=== PATIENT | female | born 1940 | race Caucasian/White ===

== ENCOUNTER 2024-02-15 02:21 | Inpatient (IN) | payer OTHER, SELFPAY ==
[2024-02-14 21:20] VITALS: BP 115/42
[2024-02-14 21:52] LABS: % Basophils 0.5 % (0-2); % Immature Granulocytes 0.7 % (0-0.5); % Lymphocytes 7.2 % (20.5-51.1); % Monocytes 6.8 % (1.7-9.3); % Neutrophils 84.8 % (42.2-75.2); Absolute Immature Granulocytes 0.1 10^3/uL (0-0.05); Absolute Lymphocytes 0.6 10^3/uL (1.2-3.4); Absolute Monocytes 0.6 10^3/uL (0.1-0.6); Absolute Neutrophils 7.5 10^3/uL (1.4-6.5); Hematocrit 39.9 % (37.0-47.0); Hemoglobin 13.4 g/dL (12.0-16.0); Mean Corp Hgb Conc. 33.6 g/dL (33.0-37.0); Mean Corpuscular Hgb 27.7 pg (27.0-31.0); Mean Corpuscular Volume 82.4 fL (81.0-99.0); Mean Platelet Volume 9.9 fL (7.4-10.4); Nucleated Red Blood Cells % 0 %; Platelet Count 247 10^3/uL (130-400); Red Blood Cell Count 4.84 10^6/uL (4.20-5.40); White Blood Cell Count 8.8 10^3/uL (4.8-10.8)
--- NOTE | 2024-02-14 21:57 | ED.GENMED ---
History of Present Illness
General
Chief Complaint: Change in Mental Status
Source: patient and family
Time Seen by Provider: 02/14/24 21:40
History of Present Illness
History of Present Illness:
84yoF with a history of aphasia presenting with her daughter and son-in-law for evaluation of altered mental status. History is provided by daughter at bedside. Daughter last spoke with patient 2 days ago on the phone. Daughter called her several
times yesterday but she did not answer. Patient still did not answer the phone today so daughter went to check on her. Patient was found on the ground in her underwear. Unclear how long patient was on the floor. Patient also seemed confused today.
Patient is not currently on any medications. She had a recent biopsy of a scalp lesion. Pathology results showed T cell lymphoma. She has not seen oncology yet. She has baseline aphasia secondary to a fall about a year ago. PCP reportedly told
family that her speech is going to continue to gradually decline.
Phy Exam
Physical Exam
Physical Exam:
Patient fatigued but alert
General Physical Exam
General Presentation: no apparent distress
General Skin: warm and dry
General Habitus: elderly
General Mental: alert
Cardiovascular Exam
Cardiovascular Exam: tachycardia
Pulmonary Exam
Pulmonary Exam: lungs clear, no respiratory distress, no crackles and no wheezing
Gastrointestinal Exam
Gastrointestinal Exam: soft, non distended and tender (+Tenderness throughout lower abdomen)
Neurological Exam
Neurological Exam: alert and other (Baseline aphasia)
Skin Exam
Skin Exam: other (Ecchymosis noted to L posterior thigh. Blanchable erythema noted in sacral region and back.)
Psychiatric Exam
Psychiatric Exam: other (Unable to assess 2/2 aphasia)
Course
Orders/Labs/Results
Orders:
Orders
02/14/24 21:31
Electrocardiogram (*1) Urgent
Reason for Study: Tachycardia
EKG- Treatment ONCE
02/14/24 21:45
Complete Blood Count/With Diff Urgent
Comprehensive Metabolic Panel Urgent
Creatine Phosphokinase Urgent
Comment: ADDON
Lipase Urgent
Comment: ADDON
Magnesium Urgent
Comment: ADDON
02/14/24 21:52
Add On- LAB Urgent
Tests Added?: magnesium, lipase
CT Cervical Spine W/o Iv Contr Urgent
Comment:
Reason For Exam: AMS, found down
CT Head W/o Iv Contrast Urgent
Comment:
Reason For Exam: AMS
CR Chest Portable - 1 View Urgent
Comment:
Reason For Exam: AMS, found down
Reason Study Needs to be Portable: Unable to Transport
02/14/24 21:53
CT Abd/pelvis W Iv Cont Urgent
Comment:
Reason For Exam: Abd pain, distention
Straight cath- Treatment ONCE
0.9% Sodium Chloride 500 ml [Nss] 500 ml IV BOLUS
02/14/24 22:12
0.9% Sodium Chloride 500 ml [Nss] 500 ml IV BOLUS
02/14/24 22:13
Lactate Level [Lactic Acid] Urgent
02/14/24 22:48
Sodium Zirconium Cyclosilicate [Lokelma] 10 gram PO NOW STA
02/14/24 22:50
COVID-19 Antigen Routine
Source: Nasal Swab
Influenza A+B Rapid Molecular Routine
[facility] Source: [facility]
Specimen Description:
Date Specimen was Collected: 02/14/24
Time Specimen was Collected: 22:50
02/14/24 22:59
Urinalysis Reflex To Culture Urgent
02/14/24 23:08
Troponin I Urgent
02/14/24 23:50
Albuterol Sulfate [Ventolin Nebules] 10 mg INH R NOW STA
02/15/24 00:05
Urine Microscopic Reflex Cult Urgent
02/15/24 00:34
0.9% Sodium Chloride 1000 ml [Nss] 1,000 ml IV BOLUS
Abnormal Lab Results
02/14/24 02/14/24 02/15/24
21:45 22:13 00:05
RDW 16.0 H %
(11.5-14.5)
Abs Immat Gran (auto) 0.1 H 10^3/uL
(0-0.05)
Absolute Neuts (auto) 7.5 H 10^3/uL
(1.4-6.5)
Absolute Lymphs (auto) 0.6 L 10^3/uL
(1.2-3.4)
Immature Gran % 0.7 H %
(0-0.5)
Neutrophils % 84.8 H %
(42.2-75.2)
Lymphocytes % 7.2 L %
(20.5-51.1)
Potassium 5.7 H mmol/L
(3.5-5.1)
Carbon Dioxide 15 L mmol/L
(22-30)
BUN 52 H mg/dl
(7-17)
Creatinine 1.1 H mg/dL
(0.6-1.0)
Glucose 165 H mg/dl
(70-99)
Lactic Acid 3.0 H mmol/L
(0.7-2.0)
Magnesium 2.7 H mg/dl
(1.6-2.3)
Total Bilirubin 1.9 H mg/dl
(0.2-1.3)
AST 93 H U/L
(14-36)
ALT 39 H U/L
(0-35)
Creatine Kinase 3327 H U/L
(30-135)
Urine Ketones 1+ A
(Negative)
Ur Occult Blood Reflex 3+ A
(Negative)
02/14/24 21:45
02/14/24 21:45
Vital Signs
Initial and Last Documented VS:
Initial Vital Signs
Temp Pulse Resp BP Pulse Ox
97.7 F 121 27 115/42 99
02/14/24 21:20 02/14/24 21:20 02/14/24 21:20 02/14/24 21:20 02/14/24 21:20
Last Documented Vital Signs
Temp Pulse Resp BP Pulse Ox
97.7 F 118 27 115/42 99
02/14/24 21:20 02/14/24 21:36 02/14/24 21:36 02/14/24 21:20 02/14/24 21:36
MDM/Problems Addressed
Differential Diagnosis Includes:
84yoF here with AMS. Found down by family today in her underwear. Family has not spoken to patient for 2 days. Patient has baseline aphasia and speaks Kinyarwanda. Daughter states she is more confused than normal. She is tachycardic on arrival with
otherwise normal vitals. She has ecchymosis noted to her L posterior thigh on exam suggesting that she fell. +Abdominal tenderness present. No other obvious injuries noted. Differential diagnosis includes but is not limited to: unwitnessed fall,
rhabdomyolysis, dehydration, TA, infection
Initial ED plan: Check cardiac labs, CK, magnesium, COVID/flu swab, UA, CXR, CT head, CT cervical spine, and CT abdomen. IV fluid bolus.
*EKG
Interpreted by ED Provider?: Yes
EKG Intrepretation Date: 02/15/24
Heart Rate: 117
Rate: tachycardiac
Rhythm: sinus
[place]: left axis deviation
QRS Pattern: normal QRS
Ischemia: no ischemia
*Critical Care Note
Total Time (30-74mins, 75-104mins- exclusive of procedures): Not Applicable
Update Note
Update Note:
Patient was straight cath by nursing staff with return of 800 cc of urine. Abdominal exam repeated after catheterization and abdomen is now soft and nontender.
Labs reveal a CK greater than 3300. Creatinine 1.1. Potassium is 5.7. No hyperkalemic changes noted on EKG. Labs also reveal a lactate of 3 although white count is normal and rectal temperature is normal. No source of infection identified on
workup. Lactic acidosis may be 2/2 dehydration. Imaging is negative for traumatic injuries. There is caval and bilateral inguinal lymphadenopathy present concerning for possible malignancy. Patient was recently diagnosed with T-cell lymphoma after
a scalp lesion biopsy. Patient admitted for further evaluation and management.
ED Attending Note
-
Portions of this chart may have been created with voice recognition software.� Occasional wrong word or��sound alike� substitutions may have occurred due to the inherent limitations of voice recognition software.
Discharge Plan
Departure
Patient Disposition: Admit
Date of Disposition: 02/15/24
Time of Disposition: 00:38
Presentation/result/management discussed w/ accepting MD/DO: Hospitalist
Discharge Problem:
Rhabdomyolysis, Acute encephalopathy, Acute urinary retention
Prescriptions:
No Action
No Current Medications
0
Referrals:
Rex Ibarra MD [Family Provider] -
Interventions
Interventions:
*Risk Screen - Suicide Last Done: 02/14/24 21:30
*General Assessment Last Done: 02/14/24 21:30
*Neglect/Abuse Screening Last Done: 02/14/24 21:30
ED- Fall Risk Assessment Last Done: 02/14/24 21:31
*ED COVID-19 Vaccine History Last Done: 02/14/24 21:30
ED- Pulmonary Assessment Last Done: 02/14/24 21:31
ED- Neurological Assessment Last Done: 02/14/24 21:31
ED- Cardiac Assessment Last Done: 02/14/24 21:31
Discharge Date and Time
Print Language: CENTRAL AFRICAN
[2024-02-14 22:08] LABS: ALT (SGPT) 39 U/L (0-35); AST (SGOT) 93 U/L (14-36); Albumin 4.3 g/dl (3.5-5.0); Alkaline Phosphatase 109 U/L (38-126); Blood Urea Nitrogen 52 mg/dl (7-17); Calcium 9.8 mg/dl (8.4-10.2); Carbon Dioxide 15 mmol/L (22-30); Chloride 104 mmol/L (98-107); Glucose 165 mg/dl (70-99); Magnesium 2.7 mg/dl (1.6-2.3); Potassium 5.7 mmol/L (3.5-5.1); Sodium 141 mmol/L (135-145); Total Bilirubin 1.9 mg/dl (0.2-1.3); Total Protein 7.1 g/dl (6.3-8.2); eGFR 50.17
[2024-02-14 22:09] LABS: Lipase 119 U/L (23-300)
[2024-02-14 22:19] LABS: Creatine Phosphokinase 3327 U/L (30-135)
[2024-02-14 23:23] LABS: COVID-19 Antigen Negative (Negative)
[2024-02-14 23:39] VITALS: BP 116/52
[2024-02-15] VITALS (25 sets, daily range): BP systolic 82–116; BP diastolic 37–85; PULSE 107; O2SAT 95; BMI 31.5
[2024-02-15] MEDS: VENTOLIN NEBULES 10 MG INH (00:17)
[2024-02-15 00:20] LABS: Urine Albumin Trace (Neg - Trace); Urine Bilirubin Negative (Negative); Urine Character Clear (Clear); Urine Color Amber; Urine Glucose Negative (Negative); Urine Ketone 1+ (Negative); Urine Leukocyte Negative (Negative); Urine Nitrite Negative (Negative); Urine Occult Blood 3+ (Negative); Urine Specific Gravity 1.025 (<1.030); Urine Urobilinogen Negative (Neg - 1+)
[2024-02-15] MEDS: NSS 1000 IV ×3 (00:34→09:33)
[2024-02-15 00:44] LABS: Troponin I 0.013 ng/ml
[2024-02-15 01:34] LABS: Urine Squamous Cell >30 /LPF (Few)
[2024-02-15 01:35] LABS: Urine Amorphous Seen; Urine Hyaline Cast >15 /LPF (0-2); Urine Mucus Many
[2024-02-15 01:36] LABS: Urine Bacteria Many (Negative)
--- NOTE | 2024-02-15 01:37 | HPS.HSE ---
Family Physician
-
Family Physician: Rex Ibarra
Chief Complaint
-
Altered mental status, found down, urinary retention
History of Present Illness
This is a 84-year-old female with no known significant past medical history presenting to the emergency department after being found her sitting on the floor with altered mentation by family.
Patient somnolent in the emergency department and unable to provide any significant history. According to daughter who was at the bedside patient is independent. Generally walks independently but has been recommended use of a walker. She performs
activities of daily living usually. She was last seen normal on Sunday approximately 2 days ago. The daughter called her on Sunday and the patient did not pick up attendant the phone. She called her again today and the patient did not pick up attendant the phone
so she visited the patient. She found the patient sitting on the floor in the bathroom. She was dressed but stated that she had just come out of the shower. She was otherwise coherent. When we tried to get her up she was very weak. EMS was
called. Fortunately patient was not awake enough to provide much history. It appears that on arrival to the emergency department she complained of abdominal discomfort and was found to be retaining urine. Urinary catheter was placed. She was
given IV fluids. She has ecchymosis to her L posterior thigh but no other injuries noted.
According to daughter the patient had a fall with laceration to the forehead a couple years ago. She has frequent dermatology follow-up for the laceration and the last follow-up she had a biopsy which was positive for T-cell lymphoma. She had
pending workup but she could not follow-up with the oncologist due to location. Patient otherwise is not on any medications and has no significant past medical history.
In the emergency department she was afebrile, she was tachycardic to the 120s with a blood pressure of 100/56. ECG shows sinus tachycardia at [address] or T wave changes but it was affected by shaking artifacts. White count was
normal at 8.8 hemoglobin was 13.4 and platelet count was 247. Troponin was negative at 0.013. COVID test was negative. UA was negative. Chemistries notable for potassium of 5.7 and a bicarb of 15 and a BUN of 53 with a creatinine of 1.1. She
had mild elevation in NT bilirubin to 1.9 with a AST of 93 and ALT of 39. CK was elevated at 3327. She had extensive imaging which showed no acute abnormalities with CT of the head and c-spine. CT abd/pelvis shows caval and bilateral inguinal
lymphadenopathy.
Medical History
Past Medical History
Past Medical History: Reports None
Past Surgical History: Reports None
Social History
Unable to obtain full social history at this time due to: Other (aphasia)
Tobacco: Non-smoker
Alcohol: None
Drug: None
Personal:
Living: Alone
Employment: Retired
Family History
Family History: Not pertinent
Allergies / Home Medications
Allergies reflects when Allergies were last updated in [employer].
Home Medications with original date entered in [employer]
Allergy/Medication List:
Allergies
Allergy/AdvReac Type Severity Reaction Status Date / Time
No Known Allergies Allergy Verified 02/14/24 21:29
Home Medications
No Meds [No Current Medications] 02/14/24
Review of Systems
-
Unable to obtain full review of systems at this time due to: Patient Non-verbal
Physical Exam
Vital Signs
Vital Signs
Temp Pulse Resp BP Pulse Ox
97.7 F 122 23 101/56 100
02/14/24 21:20 02/15/24 01:00 02/15/24 01:00 02/15/24 01:00 02/15/24 01:00
Physical Exam
General: No Apparent Distress
HEENT: NormoCephalic, Anicteric, Moist mucous membranes and Atraumatic
Respiratory: Clear
Cardiac: S1/S2 and Tachycardia
GI: Soft, Non Tender, Non Distended and Normal Bowel Sounds
Rectal: Deferred by Provider
Genito-urinary: Clear Urine and Brooks
Musculoskeletal: No Clubbing, No Cyanosis and No Edema
Skin: Warm
Neuro: Other (somnolent but arousable. Attempts to follow simple commands with very poor effort. Protecting airways.)
Hematologic/Lymphatic: No Lymphadenopathy
Psych: Other (somnolent)
Laboratory Results
-
02/14/24 21:45
02/14/24 21:45
Laboratory Results
Lactic Acid 3.0 mmol/L (0.7-2.0) H 02/14/24 22:13
Total Bilirubin 1.9 mg/dl (0.2-1.3) H 02/14/24 21:45
AST 93 U/L (14-36) H 02/14/24 21:45
ALT 39 U/L (0-35) H 02/14/24 21:45
Alkaline Phosphatase 109 U/L (38-126) 02/14/24 21:45
Troponin I 0.013 ng/ml 02/15/24 00:05
Lipase 119 U/L (23-300) 02/14/24 21:45
Data Reviewed
-
Diagnostic Radiology: Image Personally Visualized and interpreted
CT Scan: Report Reviewed by me
Medical Tests (Nuc Med, Echo, EKG etc): Image Personally Visualized and interpreted
Lab Data: Labs Reviewed by me
Impression/Plan
-
IMPRESSION:
Patient without any past medical history presents with altered mental status and found sitting at home by family members.
PLAN:
1. Encephalopathy - Patient with acute encephalopathy likely metabolic. Unclear if this secondary to seizure/syncopal event. She is clearly dehydrated based on elevated BUN and its unclear how long she has been down. She remain weak with poor
mental status for me but is protecting airways. Due to GCS of approximately 8 will admit to IMU.
- admit to imu
- check toxic panel, ammonia and urine tox screen
- check influenza
- w/u for syncope with telemetry, echo and trending trop
- w/u for possible seizure with mri in am. Neuro consult and consideration of eeg if remains somnolent
- npo for now
2. Rhabdomyolysis - Patient found down, cpk 3327. Cr 1.1 and K of 5.7. Unclear if TA has set in as no prior Cr.
- IV fluids at 150 ml/hr for now (no known chf)
- trend cpk q 6 and slow rate if dropping
- monitor i/o, patient has urinary catheter
- elevated AST likley secondarry to the rhabdo.
3. Metabolic acidosis
- toxic panel as above
- lactic acidosis, iv fluids, possible eeg
5. Hyperkalemia - K 5.7. No ECG changes. Given IVF, lokelma and continous nebs in ED.
- repeat K in 4 hours and temporize if needed. if K higher, will consult nephrology for likely ta
- npo for now, continue iv fluids
4. Lymphoma - T cell lymphoma on skin biopsy with lymphadenopathy on CT. Unable to have f/u with current onc
- oncology consultation likely to set up outpatient follow up and lymph node biopsy
DVT PPX - lovenox sq
Code Status - full code
[2024-02-15] MEDS: NSS 500 IV (02:54)
[2024-02-15 02:56] LABS: Lactic Acid 2.1 mmol/L (0.7-2.0)
[2024-02-15 03:01] LABS: Blood Urea Nitrogen 43 mg/dl (7-17); Calcium 8.4 mg/dl (8.4-10.2); Carbon Dioxide 12 mmol/L (22-30); Chloride 111 mmol/L (98-107); Glucose 150 mg/dl (70-99); Potassium 3.7 mmol/L (3.5-5.1); Sodium 142 mmol/L (135-145); eGFR > 60.00
--- NOTE | 2024-02-15 03:38 | PTCARENOTE ---
. admitted to 3362- imu- daughter in to answer questions- states pt is aphasic at baseline and also estonian speaking with ability to speak and understand Qatari- - afebrile sinus tach bp wnl lethargic but opens eyes- does not attempt to speak- 95%
on room air- lungs are diminished- bilateral buttocks with open areas Calazime placed- heels red-placed on centrea max air bed-
[2024-02-15 04:43] LABS: Amphetamines Negative (Negative); Barbiturates Negative (Negative); Benzodiazepines Negative (Negative); Buprenorphine Negative (Negative); Cocaine Negative (Negative); Marijuana Negative (Negative); Methadone Negative (Negative); Methamphetamines Negative (Negative); Opiates Negative (Negative); Phencyclidine Negative (Negative); Tricyclic Antidepressants Negative (Negative)
[2024-02-15 05:44] LABS: Ammonia < 9 umol/L (9-30); Lactic Acid 2.3 mmol/L (0.7-2.0)
[2024-02-15 05:52] LABS: Hematocrit 28.7 % (37.0-47.0); Hemoglobin 9.9 g/dL (12.0-16.0); Mean Corp Hgb Conc. 34.5 g/dL (33.0-37.0); Mean Corpuscular Hgb 28.2 pg (27.0-31.0); Mean Corpuscular Volume 81.8 fL (81.0-99.0); Mean Platelet Volume 9.6 fL (7.4-10.4); Platelet Count 205 10^3/uL (130-400); Red Blood Cell Count 3.51 10^6/uL (4.20-5.40); Red Cell Dist. Width 16.1 % (11.5-14.5); White Blood Cell Count 5.3 10^3/uL (4.8-10.8)
[2024-02-15 05:58] LABS: Troponin I < 0.012 ng/ml
[2024-02-15 06:02] LABS: ALT (SGPT) 32 U/L (0-35); AST (SGOT) 74 U/L (14-36); Albumin 2.8 g/dl (3.5-5.0); Alkaline Phosphatase 76 U/L (38-126); Blood Urea Nitrogen 41 mg/dl (7-17); Calcium 8.2 mg/dl (8.4-10.2); Carbon Dioxide 15 mmol/L (22-30); Chloride 112 mmol/L (98-107); Creatine Phosphokinase 2334 U/L (30-135); Glucose 153 mg/dl (70-99); Potassium 3.8 mmol/L (3.5-5.1); Salicylate < 1.0 mg/dl (2.0-20.0); Sodium 141 mmol/L (135-145); Total Bilirubin 1.1 mg/dl (0.2-1.3); eGFR > 60.00
[2024-02-15 08:51] LABS: Glycohemoglobin (HgbA1c) 5.5 % (4.0-5.6)
--- NOTE | 2024-02-15 09:03 | W.PN.HOSP.TC ---
Today's Communication/Plan
-
Stable for tele
Assessment / Plan
Assessment / Plan
HPI: Patient without any past medical history presents with altered mental status and found sitting at home by family members.
PLAN:
1. Acute toxic metabolic encephalopathy
-TSH, ammonia level normal
-Seen with [id number] at bedside, who states that patient's altered mental status has now resolved, she is now at baseline
-Appreciate neurology input, who suspects patient has acute toxic metabolic encephalopathy superimposed on undiagnosed parkinsonism syndrome
-EEG shows generalized slowing, brain MRI pending
-PT/OT/SPL, patient lives alone
2. Rhabdomyolysis
-Patient found down, cpk 3327. Cr 1.1 and K of 5.7. Unclear if TA has set in as no prior Cr.
-Improving, continue IV fluids, trend CPK
3. Anion Gap Metabolic acidosis
-Lactic acid normal, likely from uremia
-Change IV fluids to sodium bicarb, start sodium bicarb oral supplements
4. Lymphoma
-T cell lymphoma on skin biopsy with lymphadenopathy on CT. Unable to have f/u with current onc
-Appreciate oncology input, patient will likely need outpatient follow up and lymph node biopsy
5. Hyperkalemia
-K 5.7. No ECG changes.
-Resolved status post lokelma
6. Acute urinary retention
-Brooks inserted upon admission 02/13
-Start laxatives, for void trial on 02/16
7. Chronic aphasia
Likely from parkinsonism syndrome
8. Acute kidney injury
Resolved with IV fluids
9. Nonmyocardial injury troponin elevation
Denies chest pain, Echo with normal regional wall motion at rest
Continue to trend
DVT PPX - lovenox sq
Code Status - full code
Updated [id number] at bedside 02/14
Total time spent to see the patient on the floor, examine the patient, review data and lab results, discuss treatment plan with patient, nursing staff around 55 minutes.
Physical Exam
General: Appears debilitated, obese, no acute distress
HEENT: Normocephalic, Atraumatic, EOMI, MMM
Respiratory: Clear to Auscultation bilaterally
Cardiac: Normal S1/S2, Regular Rate and Rhythm
GI: Soft, Nontender, Nondistended, Normal Bowel Sounds
Extremities: No Clubbing, Cyanosis, or Edema
Neuro: Chronic expressive aphasia noted
Psych: Calm, Cooperative
Derm: No Visible lesions
Anticipated Discharge: > 48 hours
Subjective/Interval History
-
Date of Service: February 15, 2024
Patient seen and examined with [id number] at bedside, who states patient is back to baseline mentation calix. She continues to be weak and sad. No fever, no vomiting.
Objective Data
-
Labs:
Laboratory Results
02/14/24 02/15/24 02/15/24
21:45 02:26 05:06
WBC 8.8 5.3
Hgb 13.4 9.9 L D
Hct 39.9 28.7 L
Plt Count 247 205
Sodium 141 142 141
Potassium 5.7 H 3.7 D 3.8
Chloride 104 111 H 112 H
Carbon Dioxide 15 L 12 L* 15 L
BUN 52 H 43 H 41 H
Creatinine 1.1 H 0.8 0.7
Glucose 165 H 150 H 153 H
Calcium 9.8 8.4 8.2 L
Total Bilirubin 1.9 H 1.1
AST 93 H 74 H
ALT 39 H 32
Alkaline Phosphatase 109 76
Vital Signs:
Vital Signs
Temp Pulse Resp BP Pulse Ox
99.2 F 106 23 91/45 94
02/15/24 08:14 02/15/24 06:00 02/15/24 06:00 02/15/24 06:00 09/27/24 06:00
I&O
02/14/24 02/15/24 02/16/24
06:59 06:59 06:59
Intake Total 1000 / 1000
Output Total 800 / 800
Balance 200 / 200
[2024-02-15 09:32] LABS: Lactic Acid 1.6 mmol/L (0.7-2.0)
--- NOTE | 2024-02-15 10:02 | CON.NEURO ---
Consultation
Order
Date of Consultation: 02/15/24
Requesting Provider: Juancho Huggins MD
Reason for Consult: altered mental status of uncertain etiology
CC: none
HPI: This is a 84-year-old RH woman who presented to [facility] on February 14, 2024 for with encephalopathy. According to EMR the patients found by her family sitting on the floor in the bathroom. She was dressed but stated that
she had just come out of the shower.
According to patient's daughter had progressive ambulatory and ' aphasia', for the last year. She has been noted to have shuffling gait, resting hand tremor as well as short-term memory problems. Her family has been taking care of her
financial affairs and helping with meals as well. Dulce is reportedly able to cook, take care of her ADLs and pets. No reports of visual hallucinations, carvajal, use of dopamine blockers or family history of neurodegenerative disease.
ER VS: 115/42-91/45, 121, afebrile, 99 on room air.
PDMP: No recently prescribed medications.
CT head�atrophy, disproportionate ventriculomegaly, chronic left caudate nucleus infarct.
CT abdomen: bilateral inguinal adenopathy. Findings suspicious for lymphoma or less likely metastatic disease.
Labs: Glucose�165, WBCs�normal, hemoglobin 13.4�9.9, potassium�5.7, bicarb�15�12, creatinine�1.1, lactic acid�3.0, AST�93, ALT�39, CK�3327�2334, UA positive for bacteria, RBCs, occult blood, ketones, urine tox�negative, SARS�negative
PMH: T-cell lymphoma, diverticulosis
PSH:none
SH:originally from [place], ; lives alone; uses a cane; used to work in maintenance and as RN, nonsmoker;
FH:mother when she was 4; father-lung CA
All:NKDA
ROS:Constitutional: Negative. Negative for chills, fever and unexpected weight change.
HENT: Negative for ear pain, hearing loss, tinnitus and trouble swallowing.
Eyes: Negative. Negative for photophobia, pain and visual disturbance.
Respiratory: Negative for cough, choking and shortness of breath.
Cardiovascular: Negative for chest pain, palpitations and leg swelling.
Gastrointestinal: Negative for abdominal pain and vomiting.
Endocrine: Negative. Negative for cold intolerance.
Genitourinary: Negative for dysuria, flank pain and urgency.
Musculoskeletal: Negative for back pain, gait problem, neck pain and neck stiffness.
Skin: Negative for rash.
Allergic/Immunologic: Negative. Negative for immunocompromised state.
Neurological: Negative for dizziness, tremors, seizures, speech difficulty, numbness and headaches.
Psychiatric/Behavioral: Negative for behavioral problems, confusion and hallucinations.
General: masked facies, reduced eye blink
Cardio: Regular rate and rhythm. Extremities are without cyanosis or edema.
Neuro:
Mental Status: Alert, oriented to name, month, not year. Poor attention, expressive>receptive nonfluent aphasia. Increased processing time, perseverates. Follows simple requests, increased processing time.
Cranial Nerves: Pupils are equally round and reactive to light. EOMs full. Visual [place] full to confrontation. No ptosis. No nystagmus. V1-V3 intact to light touch and pinprick bilaterally, symmetric. Face symmetric. Impaired hearing AU.
The palate elevated well. SCMs and traps 5/5. Tongue midline. No dysarthria.
Motor: Increased motor tone in upper and lower extremities. All limbs are antigravity.
Reflexes: Bilateral grasp
Sensory: Limited exam due to poor attention
Coordination: Left hand resting tremor.
Gait: deferred
Assessment and Plan:
I. Encephalopathy, likely missed (neurodegenerative/vascular)
II. Parkinsonism
III. Ambulatory dysfunction.
-Aspiration and fall precautions.
-please check TSH, free T4, vit B12, ammonia, C the patient K
-Brain MRI wo clarence if no clinical improvement
-routine EEG
-DVT prophylaxis.
I personally reviewed all radiology and labs along with past medical records pertinent to current medical problems. Total time spent in patient care is 65 minutes.
Thank you for allowing us to participate in the care of this patient. We will continue to follow. Please do not hesitate to contact us with any questions or concerns.
Subjective/Objective
Subjective Data
Date of Service: February 15, 2024
Objective Data
Vital Signs
Temp Pulse Resp BP Pulse Ox
37.3 C 106 23 91/45 94
02/15/24 08:14 02/15/24 06:00 02/15/24 06:00 02/15/24 06:00 02/15/24 07:40
Lab Results
02/15/24 05:06
02/15/24 05:06
Sodium 141 mmol/L (135-145) 02/15/24 05:06
Potassium 3.8 mmol/L (3.5-5.1) 02/15/24 05:06
BUN 41 mg/dl (7-17) H 02/15/24 05:06
Glucose 153 mg/dl (70-99) H 02/15/24 05:06
Calcium 8.2 mg/dl (8.4-10.2) L 02/15/24 05:06
Ur Buprenorphine Negative (Negative) 02/15/24 04:17
Patient Allergies
No Known Allergies Allergy (Verified 02/14/24 21:29)
Medications
-
Active Medications
Generic Name Dose Route Start Last Admin
Trade Name Freq PRN Reason Stop Dose Admin
Acetaminophen 650 mg 02/15/24 03:33
Acetaminophen 650 Mg Rectal Suppository RECTAL 03/14/24 03:32
Q6HPRN PRN
fever
Enoxaparin Sodium 40 mg 02/15/24 18:00
Enoxaparin Sodium 40 Mg/0.4 Ml Syringe SC 03/14/24 17:59
QPM CHARAN
Sodium Chloride 1,000 mls @ 150 mls/hr 02/15/24 02:27 02/15/24 09:33
Nss IV 1,000 mls
.Q6H40M CHARAN Administration
Ondansetron HCl 4 mg 02/15/24 03:33
Ondansetron 4 Mg/2 Ml Vial IV 03/14/24 03:32
Q6HPRN PRN
NAUSEA/VOMITING
Sodium Chloride 0 flush 02/15/24 03:00
Sodium Chloride 0.9% (Flush) Syringe IV 03/14/24 02:59
PER PROTOCOL CHARAN
Home Medications
�Medication �Instructions �Recorded
No Meds [No Current Medications] 02/14/24
Vital Signs and Labs
-
Vital Signs and Labs:
Vital Signs
Temp Pulse Resp BP Pulse Ox
37.3 C 106 23 91/45 94
02/15/24 08:14 02/15/24 06:00 02/15/24 06:00 02/15/24 06:00 02/15/24 07:40
Lab Results
02/15/24 05:06
02/15/24 05:06
Sodium 141 mmol/L (135-145) 02/15/24 05:06
Potassium 3.8 mmol/L (3.5-5.1) 02/15/24 05:06
BUN 41 mg/dl (7-17) H 02/15/24 05:06
Glucose 153 mg/dl (70-99) H 02/15/24 05:06
Calcium 8.2 mg/dl (8.4-10.2) L 02/15/24 05:06
Ur Buprenorphine Negative (Negative) 02/15/24 04:17
Medications
-
Medications:
Generic Name Dose Route Start Last Admin
Trade Name Freq PRN Reason Stop Dose Admin
Acetaminophen 650 mg 02/15/24 03:33
Acetaminophen 650 Mg Rectal Suppository RECTAL 03/14/24 03:32
Q6HPRN PRN
fever
Enoxaparin Sodium 40 mg 02/15/24 18:00
Enoxaparin Sodium 40 Mg/0.4 Ml Syringe SC 03/14/24 17:59
QPM CHARAN
Sodium Chloride 1,000 mls @ 150 mls/hr 02/15/24 02:27 02/15/24 09:33
Nss IV 1,000 mls
.Q6H40M CHARAN Administration
Ondansetron HCl 4 mg 02/15/24 03:33
Ondansetron 4 Mg/2 Ml Vial IV 03/14/24 03:32
Q6HPRN PRN
NAUSEA/VOMITING
Sodium Chloride 0 flush 02/15/24 03:00
Sodium Chloride 0.9% (Flush) Syringe IV 03/14/24 02:59
PER PROTOCOL CHARAN
Home Medications
-
Home Medications
No Meds [No Current Medications] 02/14/24
[2024-02-15] MEDS: ZOFRAN 4 MG IV (11:09)
[2024-02-15] MEDS: SENOKOT-S 2 TABLET PO ×2 (12:24→21:16)
[2024-02-15] MEDS: MIRALAX 17 GRAMS PO ×2 (12:25→21:15)
[2024-02-15] MEDS: TYLENOL 650 MG PO ×2 (12:25→21:19)
[2024-02-15] MEDS: SODIUM BICARBONATE 1950 MG PO ×3 (12:25→21:16)
[2024-02-15] MEDS: SODIUM BICARBONATE 1075 MEQ IV (13:02)
--- NOTE | 2024-02-15 13:21 | CON.ONC ---
Impression
Impression
ambulatory dysfunction
mental status changed
T-cell lymphoma - skin
retroperitoneal/ inguinal adenopathy
Plan
Plan
1. T-cell lymphoma - as per patient's daughter - patient underwent skin biopsy w/ dermatology of scalp w/ pathology c/w T-cell lymphoma. Will attempt to call the patient's other daughter to get dermatology practice information/ records from biopsy.
Imaging of abd/pelvis at [facility] w/ retroperitoneal/ inguinal adenopathy, which could be related to patient's new diagnosis of T-cell lymphoma. Will need to obtain records. Additional biopsy and/or CT neck/chest imaging may be indicated.
Will continue to follow with you.
Patient History
History of Present Illness
84y/o female seen in hematology/ oncology consultation regarding possible h/o T-cell lymphoma.
The patient apparently experienced a fall several years ago, and has had aphasia since that time. Therefore, history is obtained from the patient's daughters.
Over the past year, her daughter has noticed an area on her scalp that was not healing. She was seen by dermatology this past December, w/ skin biopsy done revealing apparently T-cell lymphoma. Records from that dermatology evaluation and pathology
are unavailable for review. The patient's daughter was given instructions to f/u w/ oncology and this past week discussed her mothers case with a REINIER from [facility] on a telehealth visit. No imaging or further w/u has been ordered.
She now presents to the [facility], after being found sitting on the bathroom floor. She is currently undergoing full neurologic w/u.
A CT abdomen/ pelvis in the ER revealed abnormal retroperitoneal soft tissue attenuation mass, possible lymphadenopathy, along w/ bilateral inguinal adenopathy.
Clinically, she is unable to provide any further history due to aphasia and neurologic issues.
Past-Medical/Surgical History
PMH:
aphasia
ambulatory dysfunction
T-cell lymphoma - skin involement - w/ no further staging studies to date
SH: no tobacco, no ETOH
FH: non-contrbutory
Allergies: NKDA
Patient Medication
�Medication �Instructions �Recorded �Confirmed �Last Taken �Type
No Meds [No Current Medications] 02/14/24 02/14/24 Unknown History
Active Medications
Generic Name Dose Route Start Last Admin
Trade Name Freq PRN Reason Stop Dose Admin
Acetaminophen 650 mg 02/15/24 03:33
Acetaminophen 650 Mg Rectal Suppository RECTAL 03/14/24 03:32
Q6HPRN PRN
fever
Acetaminophen 650 mg 02/15/24 11:43 02/15/24 12:25
Acetaminophen 325 Mg Tablet PO 03/14/24 11:42 650 mg
Q6HPRN PRN Administration
mild pain/ fever>100.5F
Enoxaparin Sodium 40 mg 02/15/24 18:00
Enoxaparin Sodium 40 Mg/0.4 Ml Syringe SC 03/14/24 17:59
QPM CHARAN
Sodium Bicarbonate 75 meq/ 1,075 mls @ 100 mls/hr 02/15/24 11:45 02/15/24 13:02
Sodium Chloride IV 02/16/24 11:32 1,075 mls
.[id number] CHARAN Administration
Ondansetron HCl 4 mg 02/15/24 03:33 02/15/24 11:09
Ondansetron 4 Mg/2 Ml Vial IV 03/14/24 03:32 4 mg
Q6HPRN PRN Administration
NAUSEA/VOMITING
Polyethylene Glycol 17 grams 02/15/24 12:00 02/15/24 12:25
Polyethylene Glycol Powder 17 Grams Packet PO 03/14/24 11:59 17 grams
BID CHARAN Administration
Senna/Docusate Sodium 2 tablet 02/15/24 12:00 02/15/24 12:24
Docusate W/Senna (Mary-Colace) Tablet PO 03/14/24 11:59 2 tablet
BID CHARAN Administration
Sodium Bicarbonate 1,950 mg 02/15/24 11:35 02/15/24 12:25
Sodium Bicarbonate 650 Mg Tablet PO 03/14/24 11:34 1,950 mg
TID CHARAN Administration
Sodium Chloride 0 flush 02/15/24 03:00
Sodium Chloride 0.9% (Flush) Syringe IV 03/14/24 02:59
PER PROTOCOL CHARAN
Review of Systems
-
Limited ROS due to patients mental status - as per HPI.
Physical Exam
-
General: Well Developed and No Apparent Distress
HEENT: Negative Jaundice
Cardiology: Normal Sinus Rhythm
Pulmonary: Clear
GI: Soft
Extremities: No C/C/E
Labs
Lab Results
WBC 5.3 10^3/uL (4.8-10.8) 02/15/24 05:06
RBC 3.51 10^6/uL (4.20-5.40) L 02/15/24 05:06
Hgb 9.9 g/dL (12.0-16.0) L D 02/15/24 05:06
Hct 28.7 % (37.0-47.0) L 02/15/24 05:06
MCV 81.8 fL (81.0-99.0) 02/15/24 05:06
MCH 28.2 pg (27.0-31.0) 02/15/24 05:06
MCHC 34.5 g/dL (33.0-37.0) 02/15/24 05:06
RDW 16.1 % (11.5-14.5) H 02/15/24 05:06
Plt Count 205 10^3/uL (130-400) 02/15/24 05:06
MPV 9.6 fL (7.4-10.4) 02/15/24 05:06
Abs Immat Gran (auto) 0.1 10^3/uL (0-0.05) H 02/14/24 21:45
Absolute Neuts (auto) 7.5 10^3/uL (1.4-6.5) H 02/14/24 21:45
Absolute Lymphs (auto) 0.6 10^3/uL (1.2-3.4) L 02/14/24 21:45
Absolute Monos (auto) 0.6 10^3/uL (0.1-0.6) 02/14/24 21:45
Absolute Eos (auto) 0.0 10^3/uL (0-0.7) 02/14/24 21:45
Absolute Basos (auto) 0.0 10^3/uL (0-0.2) 02/14/24 21:45
Immature Gran % 0.7 % (0-0.5) H 02/14/24 21:45
Neutrophils % 84.8 % (42.2-75.2) H 02/14/24 21:45
Lymphocytes % 7.2 % (20.5-51.1) L 02/14/24 21:45
Monocytes % 6.8 % (1.7-9.3) 02/14/24 21:45
Eosinophils % 0.0 % (0-6) 02/14/24 21:45
Basophils % 0.5 % (0-2) 02/14/24 21:45
Creatinine 0.7 mg/dL (0.6-1.0) 02/15/24 05:06
Vital Signs
Vital Signs
Temp Pulse Resp BP Pulse Ox
98.3 F 106 25 107/55 94
02/15/24 11:12 02/15/24 10:00 02/15/24 10:00 02/15/24 10:00 02/15/24 10:00
--- NOTE | 2024-02-15 13:25 | PTCARENOTE ---
Pt received in bed @ 0700. Pt awake. Switching between Namibian and Maltese in responding. Passed bedside swallow eval. Regular diet ordered. Pt ambulated to chair with physical therapy. Pt grimacing. Unable to remain comfortable in chair. Pt unable
to rate pain but moaning and turning from side to side in pain. Assisted back to chair. PRN Tylenol PO administered. Dr. Hare notified. New order for Pelvic XR. IVF changed to 1/2 NSS with Sodium Bicarbonate 75meq @ 100ml/hr. Scheduled Sodium
Bicarbonate 1950mg PO administered. Undergoing EEG ordered by Neurology at this time. Pt downgraded to telemetry.
[2024-02-15 13:26] LABS: Ammonia < 9 umol/L (9-30)
[2024-02-15 13:40] LABS: Troponin I 0.052 ng/ml
[2024-02-15 13:57] LABS: TSH Reflex To Free T4 1.29 uIU/ml (0.47-4.68)
--- NOTE | 2024-02-15 14:05 | EEG.RPT ---
Electroencephalogram Report
Recording
Date of EE02/15/24
Type of EEG: Routine
Length of EEG recordin minutes
Done with Video Recording: Yes
Patient Status: Inpatient
Recording Conditions: Awake and Drowsy
Hyperventilation Performed: No
Photic Stimulation Performed: Yes
Report
LESS THAN 1 HOUR REPORT
LESS THAN 1 HOUR EEG INTERPRETATION:
Likely unremarkable study for age despite low amplitudes bihemispherically equally
CLINICAL CORRELATION:
Although normative values not been established for a person of this advanced age the patient�s symmetry of the background suggests that this study was unremarkable.
Clinical correlation is advised.
METHODS:
A 21 channel digitized electroencephalogram (EEG) was performed in the Clinical Neurophysiology Laboratory. The 10/20 international system of electrode placement was used with ECG and lateral/vertical eye movements recorded. Codewise QEEG analysis
system was utilized.
ELECTROENCEPHALOGRAPHER IMPRESSION(S):
Quality of study
Good
Background
Low amplitude
Fair anterior-posterior voltage gradient differentiated
Alpha maximal background demonstrated, minimally maintained
Sleep
Drowsiness present
Hyperventilation
Not performed
Photic Stimulation
Didn�t activate the record
ECG
Unremarkable
--- NOTE | 2024-02-15 14:34 | CM ---
CM met with patient's daughter in room. Patient's daughter stated that patient lives in a [place] community. He home is a single floor. Patient does not have any services in the home. Patient uses a cane at times. Patient is active with her PCP. Patient
uses [facility] for medication services.
Daughter stated that they would prefer a home discharge with home care services. Family is able to have patient stay with them after discharge. They would consider SNF for STR if needed. CM will continue to follow.
[2024-02-15] MEDS: LOVENOX 40 MG SC (17:38)
[2024-02-16] VITALS (9 sets, daily range): BP systolic 96–109; BP diastolic 54–67; PULSE 95–99; O2SAT 98; BMI 31.8
[2024-02-16] MEDS: SODIUM BICARBONATE 1075 MEQ IV (01:03)
[2024-02-16 06:44] LABS: Hematocrit 26.1 % (37.0-47.0); Mean Corp Hgb Conc. 34.5 g/dL (33.0-37.0); Mean Corpuscular Hgb 29.3 pg (27.0-31.0); Mean Platelet Volume 9.4 fL (7.4-10.4); Platelet Count 173 10^3/uL (130-400); Red Blood Cell Count 3.07 10^6/uL (4.20-5.40); Red Cell Dist. Width 16.1 % (11.5-14.5); White Blood Cell Count 2.5 10^3/uL (4.8-10.8)
--- NOTE | 2024-02-16 07:33 | W.PN.HOSP.TC ---
Today's Communication/Plan
-
see bold
Assessment / Plan
Assessment / Plan
HPI: Patient without any past medical history presents with altered mental status and found sitting at home by family members.
PLAN:
1. Acute toxic metabolic encephalopathy
-TSH, ammonia level normal
-Seen with [id number] at bedside, who states that patient's altered mental status has now resolved, she is now at baseline
-Appreciate neurology input, who suspects patient has acute toxic metabolic encephalopathy superimposed on undiagnosed parkinsonism syndrome
-EEG shows generalized slowing, brain MRI shows right mastoiditis, mild�moderate diffuse cortical and cerebellar atrophy
-PT/OT/SPL, patient lives alone, PT rec SNF
2. Rhabdomyolysis
-Patient found down, cpk 3327. Cr 1.1 and K of 5.7. Unclear if TA has set in as no prior Cr.
-Improving, continue IV fluids, trend CPK
3. Anion Gap Metabolic acidosis
-Lactic acid normal, likely from uremia
-Resolved, continue IV fluids w/ sodium bicarb, discontinue sodium bicarb oral supplements
4. Lymphoma
-T cell lymphoma on skin biopsy with lymphadenopathy on CT. Unable to have f/u with current onc
-Appreciate oncology input, patient will likely need outpatient follow up and lymph node biopsy
5. Hyperkalemia
-K 5.7. No ECG changes.
-Resolved status post lokelma
6. Acute urinary retention
-Brooks inserted upon admission 02/13
-Started laxatives, for void trial on 02/16
7. Chronic aphasia
Likely from parkinsonism syndrome
8. Acute kidney injury
Resolved with IV fluids
9. Nonmyocardial injury troponin elevation
Denies chest pain, Echo with normal regional wall motion at rest
Continue to trend
10. Anemia of chronic disease
Iron studies reviewed, iron stores normal
Trend hemoglobin
11. Mastoiditis on brain MRI
No fever, patient has leukopenia
Check blood cultures, check procalcitonin, consider ID consult
12. Sacral pain
Offloading
DVT PPX - lovenox sq
Code Status - full code
Updated [id number] at bedside 02/14
Total time spent to see the patient on the floor, examine the patient, review data and lab results, discuss treatment plan with patient, nursing staff around 51 minutes.
Physical Exam
General: Appears debilitated, obese, no acute distress
HEENT: Normocephalic, Atraumatic, EOMI, MMM
Respiratory: Clear to Auscultation bilaterally
Cardiac: Normal S1/S2, Regular Rate and Rhythm
GI: Soft, Nontender, Nondistended, Normal Bowel Sounds
Extremities: No Clubbing, Cyanosis, or Edema
Neuro: Chronic expressive aphasia noted
Psych: Calm, Cooperative
Anticipated Discharge: > 48 hours
Subjective/Interval History
-
Date of Service: February 15, 2024
Patient complains of sacral pain.
Objective Data
-
Labs:
Laboratory Results
02/15/24
05:06
WBC 5.3
Hgb 9.9 L D
Hct 28.7 L
Plt Count 205
Sodium 141
Potassium 3.8
Chloride 112 H
Carbon Dioxide 15 L
BUN 41 H
Creatinine 0.7
Glucose 153 H
Calcium 8.2 L
Total Bilirubin 1.1
AST 74 H
ALT 32
Alkaline Phosphatase 76
Vital Signs:
Vital Signs
Temp Pulse Resp BP Pulse Ox
98.6 F 109 20 98/53 98
02/15/24 16:18 02/15/24 16:18 02/15/24 16:18 02/15/24 16:18 02/15/24 16:18
I&O
02/14/24 02/15/24 02/16/24
06:59 06:59 06:59
Intake Total 1000 / 1000 1200 / 1200
Output Total 800 / 800 525 / 525
Balance 200 / 200 675 / 675
[2024-02-16 07:42] LABS: ALT (SGPT) 35 U/L (0-35); AST (SGOT) 69 U/L (14-36); Albumin 2.4 g/dl (3.5-5.0); Alkaline Phosphatase 76 U/L (38-126); Blood Urea Nitrogen 22 mg/dl (7-17); Carbon Dioxide 27 mmol/L (22-30); Chloride 109 mmol/L (98-107); Creatine Phosphokinase 1186 U/L (30-135); Estimated Creatinine Clearance 63 ml/min; Glucose 103 mg/dl (70-99); Iron 84 ug/dl (37-170); Potassium 3.9 mmol/L (3.5-5.1); Sodium 140 mmol/L (135-145); Total Protein 4.4 g/dl (6.3-8.2); eGFR > 60.00
[2024-02-16 08:00] LABS: Percent Saturation 36 % (20-50); Total Iron Binding Capacity 232 ug/dl (265-497)
[2024-02-16] MEDS: SODIUM BICARBONATE PO (08:49)
[2024-02-16] MEDS: MIRALAX 17 GRAMS PO ×2 (08:50→21:26)
[2024-02-16] MEDS: SENOKOT-S 2 TABLET PO ×2 (08:50→21:26)
[2024-02-16 08:55] LABS: Folate 2.8 ng/ml (2.76-20); Vitamin B12 913 pg/ml (239-931)
[2024-02-16] MEDS: TYLENOL 650 MG PO ×3 (08:56→21:21)
--- NOTE | 2024-02-16 08:57 | PTOTSP ---
Speech Language Pathology:
Clinical Swallow Evaluation
84F admitted for encephalopathy p/w clinical s/s of a mild oropharyngeal dysphagia characterized by slow oral processing w/ oral residue and intermittent delayed initiation of swallow. No overt s/s of aspiration observed this date. Aspiration is
increased 2/2 current lethargy and AMS.
Recommend:
1. Regular textures (IDDSI 7), thin liquids (IDDSI 0)
2. Meds as tolerated
3. Feeding strategies: partial supervision 2/2 AMS and lethargy, upright for meals, only feed when awake and alert, make sure oral cavity is clear post PO
4. Aspiration precautions
5. Consider speech-language evaluation if changes in mental status persist
6. H[facility]PITAL[facility] HOST service to follow up and assess diet level tolerance, as well as evaluate speech-language as able
[2024-02-16] MEDS: SODIUM BICARBONATE IV (12:44)
[2024-02-16] MEDS: ROXICODONE 5 MG PO ×2 (13:56→21:30)
[2024-02-16] MEDS: NSS 1000 IV ×2 (13:57→22:53)
[2024-02-16] MEDS: SODIUM BICARBONATE 650 MG PO ×2 (17:16→21:26)
[2024-02-16] MEDS: LOVENOX 40 MG SC (17:28)
[2024-02-17 03:41] VITALS: BP 101/58
[2024-02-17] MEDS: ROXICODONE 5 MG PO ×3 (05:53→16:59)
[2024-02-17 05:55] VITALS: BMI 31.6
[2024-02-17 07:05] VITALS: BP 133/64
[2024-02-17 07:48] LABS: Hematocrit 27.1 % (37.0-47.0); Hemoglobin 8.9 g/dL (12.0-16.0); Mean Corp Hgb Conc. 32.8 g/dL (33.0-37.0); Mean Corpuscular Hgb 27.6 pg (27.0-31.0); Mean Corpuscular Volume 84.2 fL (81.0-99.0); Mean Platelet Volume 9.7 fL (7.4-10.4); Platelet Count 185 10^3/uL (130-400); Red Blood Cell Count 3.22 10^6/uL (4.20-5.40); Red Cell Dist. Width 15.8 % (11.5-14.5)
[2024-02-17] MEDS: NSS 1000 IV (07:57)
[2024-02-17 07:59] LABS: Procalcitonin 0.08 ng/ml (0.0-0.25)
[2024-02-17] MEDS: MIRALAX 17 GRAMS PO (08:11)
[2024-02-17] MEDS: SENOKOT-S 2 TABLET PO (08:11)
[2024-02-17 08:12] LABS: ALT (SGPT) 33 U/L (0-35); AST (SGOT) 50 U/L (14-36); Albumin 2.5 g/dl (3.5-5.0); Alkaline Phosphatase 81 U/L (38-126); Blood Urea Nitrogen 12 mg/dl (7-17); Carbon Dioxide 26 mmol/L (22-30); Chloride 107 mmol/L (98-107); Creatine Phosphokinase 390 U/L (30-135); Estimated Creatinine Clearance 73 ml/min; Glucose 96 mg/dl (70-99); Potassium 3.9 mmol/L (3.5-5.1); Sodium 138 mmol/L (135-145); Total Protein 4.5 g/dl (6.3-8.2); eGFR > 60.00
[2024-02-17] MEDS: SODIUM BICARBONATE 650 MG PO ×3 (08:12→22:48)
[2024-02-17] MEDS: TYLENOL 650 MG PO ×3 (08:12→22:48)
--- NOTE | 2024-02-17 08:38 | W.PN.HOSP.TC ---
Today's Communication/Plan
-
See bold
Assessment / Plan
Assessment / Plan
HPI: Patient without any past medical history presents with altered mental status and found sitting at home by family members.
PLAN:
1. Acute toxic metabolic encephalopathy
-TSH, ammonia level normal
-Seen with [id number] at bedside, who states that patient's altered mental status has now resolved, she is now at baseline
-Appreciate neurology input, who suspects patient has acute toxic metabolic encephalopathy superimposed on undiagnosed parkinsonism syndrome
-EEG shows generalized slowing, brain MRI shows right mastoiditis, mild�moderate diffuse cortical and cerebellar atrophy
-PT/OT/SPL, patient lives alone, PT rec SNF
-Trial of Sinemet started by neurology 02/16
2. Rhabdomyolysis
-Patient found down, cpk 3327. Cr 1.1 and K of 5.7. Unclear if TA has set in as no prior Cr.
-Improving, CPK down to 390 today, will discontinue IVFs as she has LE edema
3. Anion Gap Metabolic acidosis
-Lactic acid normal, likely from uremia
-Resolved, s/p IV fluids w/ sodium bicarb, s/p sodium bicarb oral supplements
4. Lymphoma
-T cell lymphoma on skin biopsy with lymphadenopathy on CT. Unable to have f/u with current onc
-Appreciate oncology input, patient will likely need outpatient follow up and lymph node biopsy
5. Hyperkalemia
-K 5.7. No ECG changes.
-Resolved status post lokelma
6. Acute urinary retention
-Brooks inserted upon admission 02/13
-Started laxatives, for void trial today 02/16
7. Chronic aphasia
Likely from parkinsonism syndrome
8. Acute kidney injury
Resolved with IV fluids
9. Nonmyocardial injury troponin elevation
Denies chest pain, Echo with normal regional wall motion at rest
Continue to trend
10. Anemia of chronic disease
Iron studies reviewed, iron stores normal
Trend hemoglobin
11. Mastoiditis on brain MRI
Blood culture pending, procalcitonin negative
No tenderness on exam, no fever, patient does have leukopenia
Monitor off antibiotics
12. Sacral skin tears from home
Offloading, wound care
13. Leukopenia
Will ask hematology/oncology to comment
14. Abd pain
Discussed with oncology, likely from lymphoma
Continue pain meds
CT abd/pelvis:
1. Abnormal retroperitoneal soft tissue attenuation mass most likely representing lymphadenopathy as above. There is bilateral inguinal adenopathy. Findings suspicious for lymphoma or less likely metastatic disease.
2. Mild prominence of right renal collecting system as compared with the left and increased right perinephric stranding. As above, right ureter courses directly adjacent to the retroperitoneal mass and these findings could be related to partial
ureteral obstruction. No definitive abnormally decreased right renal attenuation to strongly suggest pyelonephritis.
3. Diverticulosis without diverticulitis.
4. Approximately 3.0 cm simple fluid attenuation cyst of the left adnexa, probable ovarian cyst.
DVT PPX - lovenox sq
Code Status - full code
Updated daughter at bedside 02/14
Updated daughter on phone 02/15
Updated daughter on phone 02/16
Total time spent to see the patient on the floor, examine the patient, review data and lab results, discuss treatment plan with patient, nursing staff around 53 minutes.
Physical Exam
General: Appears debilitated, obese, no acute distress
HEENT: Normocephalic, Atraumatic, EOMI, MMM
Respiratory: Clear to Auscultation bilaterally
Cardiac: Normal S1/S2, Regular Rate and Rhythm
GI: Soft, Nontender, Nondistended, Normal Bowel Sounds
Extremities: No Clubbing, Cyanosis, or Edema
Neuro: Chronic expressive aphasia noted
Psych: Calm, Cooperative
Anticipated Discharge: > 48 hours
Subjective/Interval History
-
Date of Service: February 17, 2024
Patient complains of abdominal pain. No fever, no vomiting.
Objective Data
-
Labs:
Laboratory Results
02/17/24
06:32
WBC 2.0 L*
Hgb 8.9 L
Hct 27.1 L
Plt Count 185
Sodium 138
Potassium 3.9
Chloride 107
Carbon Dioxide 26
BUN 12
Creatinine 0.6
Glucose 96
Calcium 8.0 L
Total Bilirubin 1.0
AST 50 H
ALT 33
Alkaline Phosphatase 81
Vital Signs:
Vital Signs
Temp Pulse Resp BP Pulse Ox
97.4 F 99 20 133/64 94
02/17/24 07:05 02/17/24 07:05 02/17/24 07:05 02/17/24 07:05 02/17/24 07:05
I&O
02/16/24 02/17/24 02/18/24
06:59 06:59 06:59
Intake Total 1440 / 1440 3660 / 3660
Output Total 1275 / 1275 2575 / 2575
Balance 165 / 165 1085 / 1085
[2024-02-17 11:00] VITALS: BP 120/72
--- NOTE | 2024-02-17 12:21 | W.PN.NEURO.1 ---
Today's Communication / Plan
-
.
Subjective/Objective
Subjective Data
Date of Service: February 17, 2024
24h events: afebrile, mildly hypotensive. No longer acidotic.
Ms. Frausto reports no complaints. She is concerned about her cats care.
Brain MRI showed no acute infarcts, mod atrophy
Routine EEG(02/16/24)likely unremarkable study for age despite low amplitudes bihemispherically equally
Labs: WBC 2.0, Hb 8.9, CK 380, unremarkable TFTs, vit B12,
MAR: oxycodone 5 mg given on 02/17/2024 at 5:53 and 21:30 on 02/16/24.
PMH: T-cell lymphoma, diverticulosis
PSH: none
SH:originally from [place], ; lives alone; uses a cane; used to work in maintenance and as RN, nonsmoker;
FH:mother when she was 4; father-lung CA
All:NKDA
ROS positive for encephalopathy. Negative for headache, chest pain, abdominal pain.
General: masked facies, reduced eye blink
Cardio: Regular rate and rhythm.
Neuro:
Mental Status: Alert, oriented to name, ' not year. Poor attention, expressive>receptive nonfluent aphasia. Increased processing time. Follows simple requests, increased processing time.
Cranial Nerves: Pupils are equally round and reactive to light. EOMs full. Visual [place] full to confrontation. No ptosis. No nystagmus. V1-V3 intact to light touch and pinprick bilaterally, symmetric. Face symmetric. Impaired hearing AU.
The palate elevated well. SCMs and traps 5/5. Tongue midline. No dysarthria.
Motor: Increased motor tone in upper and lower extremities. All limbs are antigravity.
Reflexes: Bilateral grasp
Sensory: Limited exam due to poor attention
Coordination: Left hand resting tremor.
Gait: deferred
Assessment and Plan:
I. Encephalopathy, likely mixed (neurodegenerative/vascular). Clinically stable
II. Parkinsonism
III. Ambulatory dysfunction.
-Delirium precautions
-Sinemet trial
-Avoid CASE CONSULTANT suppressants
-PT
-DVT prophylaxis.
I personally reviewed all radiology and labs along with past medical records pertinent to current medical problems. Total time spent in patient care is 35 minutes.
Thank you for allowing us to participate in the care of this patient. We will continue to follow. Please do not hesitate to contact us with any questions or concerns.
Objective Data
Vital Signs
Temp Pulse Resp BP Pulse Ox
36.4 C 99 18 120/72 95
02/17/24 11:00 02/17/24 11:00 02/17/24 11:00 02/17/24 11:00 02/17/24 11:00
Lab Results
02/17/24 06:32
02/17/24 06:32
Sodium 138 mmol/L (135-145) 02/17/24 06:32
Potassium 3.9 mmol/L (3.5-5.1) 02/17/24 06:32
BUN 12 mg/dl (7-17) 02/17/24 06:32
Glucose 96 mg/dl (70-99) 02/17/24 06:32
Calcium 8.0 mg/dl (8.4-10.2) L 02/17/24 06:32
Vitamin B12 913 pg/ml (239-931) 02/16/24 06:25
Ur Buprenorphine Negative (Negative) 02/15/24 04:17
Patient Allergies
No Known Allergies Allergy (Verified 02/14/24 21:29)
Vital Signs and Labs
-
Vital Signs and Labs:
Vital Signs
Temp Pulse Resp BP Pulse Ox
36.4 C 99 18 120/72 95
02/17/24 11:00 02/17/24 11:00 02/17/24 11:00 02/17/24 11:00 02/17/24 11:00
Lab Results
02/17/24 06:32
02/17/24 06:32
Sodium 138 mmol/L (135-145) 02/17/24 06:32
Potassium 3.9 mmol/L (3.5-5.1) 02/17/24 06:32
BUN 12 mg/dl (7-17) 02/17/24 06:32
Glucose 96 mg/dl (70-99) 02/17/24 06:32
Calcium 8.0 mg/dl (8.4-10.2) L 02/17/24 06:32
Vitamin B12 913 pg/ml (966-931) 02/16/24 06:25
Ur Buprenorphine Negative (Negative) 02/15/24 04:17
Medications
-
Medications:
Generic Name Dose Route Start Last Admin
Trade Name Freq PRN Reason Stop Dose Admin
Acetaminophen 650 mg 02/16/24 08:45 02/17/24 08:12
Acetaminophen 325 Mg Tablet PO 03/15/24 08:44 650 mg
TID CHARAN Administration
Enoxaparin Sodium 40 mg 02/15/24 18:00 02/16/24 17:28
Enoxaparin Sodium 40 Mg/0.4 Ml Syringe SC 03/14/24 17:59 40 mg
QPM CHARAN Administration
Sodium Chloride 1,000 mls @ 100 mls/hr 02/16/24 13:30 02/17/24 07:57
Nss IV 1,000 mls
.Q10H CHARAN Administration
Ondansetron HCl 4 mg 02/15/24 03:33 02/15/24 11:09
Ondansetron 4 Mg/2 Ml Vial IV 03/14/24 03:32 4 mg
Q6HPRN PRN Administration
NAUSEA/VOMITING
Oxycodone HCl 5 mg 02/16/24 13:50 02/17/24 05:53
Oxycodone 5 Mg Regular Release Tablet PO 03/01/24 13:49 5 mg
Q4HPRN PRN Administration
moderate pain
Polyethylene Glycol 17 grams 02/15/24 12:00 02/17/24 08:11
Polyethylene Glycol Powder 17 Grams Packet PO 03/14/24 11:59 17 grams
BID CHARAN Administration
Senna/Docusate Sodium 2 tablet 02/15/24 12:00 02/17/24 08:11
Docusate W/Senna (Mary-Colace) Tablet PO 03/14/24 11:59 2 tablet
BID CHARAN Administration
Sodium Bicarbonate 650 mg 02/16/24 08:45 02/17/24 08:12
Sodium Bicarbonate 650 Mg Tablet PO 03/14/24 11:34 650 mg
TID CHARAN Administration
Sodium Chloride 0 flush 02/15/24 03:00
Sodium Chloride 0.9% (Flush) Syringe IV 03/14/24 02:59
PER PROTOCOL CHARAN
Home Medications
-
Home Medications
No Meds [No Current Medications] 02/14/24
[2024-02-17 15:31] VITALS: BP 102/59
--- NOTE | 2024-02-17 16:31 | PTOTSP ---
ST Follow Up
Pt currently present with clinical signs of suspected pharyngeal dysphagia. Pt also presenting with occasional difficulties with both receptive and expressive language, which will need to be assessed further.
Recommendations:
- Continue with regular solids, thin liquids, and meds as tolerated.
- General aspiration precautions.
- BLUEPRINT CUTTER to f/u re: diet tolerance to ensure pt is safely consuming PO diet and to determine whether an instrumental swallow study is warranted.
- BLUEPRINT CUTTER to monitor pt's progress/outcomes of neurology re-assessments and complete a cognitive linguistic evaluation when pt's medical status has been optimized.
[2024-02-17] MEDS: SINEMET 25-100 0.5 TABLET PO ×2 (16:59→22:49)
[2024-02-17] MEDS: LOVENOX 40 MG SC (16:59)
[2024-02-17] MEDS: MAALOX PLUS 1 TABLET PO (17:33)
[2024-02-17 19:05] VITALS: BP 105/74
[2024-02-17] MEDS: MIRALAX PO (20:43)
[2024-02-17] MEDS: SENOKOT-S PO (20:43)
--- NOTE | 2024-02-17 22:02 | W.PN.ONC2 ---
Today's Communication / Plan
-
Lymphoma can cause abdominal pain but usually this would be if it were causing some form of obstruction.
Pain not localized to R collecting system.
Pain is crampy in quality.
Will try simethicone and Bentyl.
If pain remains in AM then consider GI consult.
Will see again 02/17.
Impression
Impression
ambulatory dysfunction
mental status changed
T-cell lymphoma - skin
retroperitoneal/ inguinal adenopathy
abdominal pain
R renal collecting system prominence
Plan
Plan
T-cell lymphoma involving scalp, possible r/p and inguinal nodes
Abdominal pain
Subjective/Objective
Chief Complaint
Heme/Onc follow up of T-cell lymphoma, retroperitoneal adenopathy
Subjective
c/o diffuse abdominal pain, started in last couple days, unrelieved by BM. no nausea/vomiting. Daughter present and translating.
Vital Signs:
Vital Signs
Temp Pulse Resp BP Pulse Ox
99.2 F 108 18 105/74 95
02/17/24 19:05 02/17/24 19:05 02/17/24 19:05 02/17/24 19:05 02/17/24 19:05
Lab Results:
Laboratory Data
WBC 2.0 10^3/uL (4.8-10.8) L* 02/17/24 06:32
Hgb 8.9 g/dL (12.0-16.0) L 02/17/24 06:32
Plt Count 185 10^3/uL (130-400) 02/17/24 06:32
eGFR > 60.00 02/17/24 06:32
Physical Exam
Awake, alert, uncomfortable appearing
Orders
Orders
Orders From Last 24 Hours
02/17/24 17:23
Dicyclomine [Bentyl] 10 mg PO QIDPRN PRN
Mag/Al/Simethicone [Maalox Plus] 1 tablet PO NOW STA
Mag/Al/Simethicone [Maalox Plus] 1 tablet PO Q4HPRN PRN
[2024-02-17 23:05] VITALS: BP 124/72
[2024-02-18 03:01] VITALS: BP 105/61
[2024-02-18 06:00] VITALS: BMI 33.3
[2024-02-18 07:00] VITALS: BP 127/78
[2024-02-18] MEDS: MIRALAX PO (08:17)
[2024-02-18] MEDS: SINEMET 25-100 0.5 TABLET PO (08:48)
[2024-02-18] MEDS: SENOKOT-S PO (08:48)
[2024-02-18] MEDS: SODIUM BICARBONATE 650 MG PO ×3 (08:48→21:53)
[2024-02-18] MEDS: TYLENOL 650 MG PO ×3 (08:49→21:53)
--- NOTE | 2024-02-18 09:05 | W.PN.HOSP.TC ---
Addendum entered and electronically signed by Jackie Galeas MD 02/18/24 14:27:
# Stage 2 bilateral buttock pressure injuries, POA
# Stage 1 bilateral heel pressure injuries, POA.
# Non- traumatic rhabdomyolysis
Original Note:
Today's Communication/Plan
-
see A/P
Assessment / Plan
Assessment / Plan
HPI: Patient without any past medical history presented with altered mental status and found sitting at home by family members.
A/P:
# Acute toxic metabolic encephalopathy
TSH, ammonia level normal
Seen with [id number] at bedside, who states that patient's altered mental status has resolved, she is now at baseline
Appreciate neurology input, who suspects patient has acute toxic metabolic encephalopathy superimposed on undiagnosed parkinsonism syndrome
EEG shows generalized slowing, brain MRI shows right mastoiditis, mild�moderate diffuse cortical and cerebellar atrophy
PT/OT/SPL, patient lives alone, PT rec SNF
Trial of Sinemet started by neurology 02/16
# Rhabdomyolysis
Patient found down, CPK 3327, Cr 1.1 and K of 5.7.
Improving, CPK down to 390, Cr down to 0.6, off IVFs as she has LE edema
# Anion Gap Metabolic acidosis, resolved
Lactic acid normal, likely from uremia
s/p IV fluids w/ sodium bicarb, s/p sodium bicarb oral supplements
# # T-cell lymphoma - skin
# Leukopenia
T cell lymphoma on skin biopsy with lymphadenopathy on CT. Unable to have f/u with current onc
Appreciate oncology input, patient will likely need outpatient follow up and lymph node biopsy
# Hyperkalemia, resolved
K 5.7 on admission. No ECG changes.
Resolved status post lokelma
# Acute urinary retention
Brooks inserted upon admission 02/13
Started laxatives, for void trial started 02/16
# Chronic aphasia
Likely from parkinsonism syndrome
# Acute kidney injury
Resolved with IV fluids
# Nonmyocardial injury troponin elevation
Denies chest pain, Echo with normal regional wall motion at rest
Continue to trend
# Anemia of chronic disease
Iron studies reviewed, iron stores normal
Trend hemoglobin
# Mastoiditis on brain MRI
Blood culture pending, procalcitonin negative
No tenderness on exam, no fever, patient does have leukopenia
Monitor off antibiotics
# Sacral skin tears from home
Offloading, wound care
# Abd pain
Discussed with oncology, likely from lymphoma
Continue pain meds
Pt was started trial of simethicone and Bentyl 02/16.
CT abd/pelvis:
1. Abnormal retroperitoneal soft tissue attenuation mass most likely representing lymphadenopathy. There is bilateral inguinal adenopathy. Findings suspicious for lymphoma or less likely metastatic disease.
2. Mild prominence of right renal collecting system as compared with the left and increased right perinephric stranding. As above, right ureter courses directly adjacent to the retroperitoneal mass and these findings could be related to partial
ureteral obstruction. No definitive abnormally decreased right renal attenuation to strongly suggest pyelonephritis.
GI eval
Check Abd XR for consideration of ileus
DVT PPX - Lovenox sq
Code Status - full code
updated daughter on the phone
total time spent 51 min
Anticipated Discharge: > 48 hours
Subjective/Interval History
-
Date of Service: February 18, 2024
Objective Data
-
Labs:
Laboratory Results
02/18/24
07:55
WBC Pending
Hgb Pending
Hct Pending
Plt Count Pending
Sodium Pending
Potassium Pending
Chloride Pending
Carbon Dioxide Pending
BUN Pending
Creatinine Pending
Glucose Pending
Calcium Pending
Total Bilirubin Pending
AST Pending
ALT Pending
Alkaline Phosphatase Pending
Vital Signs:
Vital Signs
Temp Pulse Resp BP Pulse Ox
36.8 C 105 18 127/78 96
02/18/24 07:00 02/18/24 07:00 02/18/24 07:00 02/18/24 07:00 02/18/24 07:00
I&O
02/17/24 02/18/24 02/19/24
06:59 06:59 06:59
Intake Total 3660 / 3660 1320 / 1320
Output Total 2575 / 2575 4425 / 4425
Balance 1085 / 1085 -3105 / -3105
Review of Systems
-
Unable to obtain full review of systems at this time due to: Language Barrier
Abdomen/GI: Reports Abdominal Pain
Physical Exam
-
General: Well Developed, Well Nourished, No Apparent Distress, Appears Chronically Ill and Obese; Negative Respiratory Distress
HEENT: Normocephalic, Atraumatic, Nose Appears Normal and Ears Appear Normal; Negative Oxygen
Respiratory: Clear to Auscultation and Non Labored Respirations; Negative Accessory Resp Muscle Use
Cardiac: Regular Rhythm and S1/S2
GI: Tender (diffuse), Distended and Other (decreased bowel sound)
Skin: Warm and Dry
Neuro: Awake and Alert
Psych: Calm
Data Reviewed
-
CT Scan: Report Reviewed by me
MRI: Report Reviewed by me
Labs: Labs Reviewed by me
[2024-02-18 09:11] LABS: Hematocrit 28.6 % (37.0-47.0); Hemoglobin 9.7 g/dL (12.0-16.0); Mean Corp Hgb Conc. 33.9 g/dL (33.0-37.0); Mean Corpuscular Hgb 29.1 pg (27.0-31.0); Mean Corpuscular Volume 85.9 fL (81.0-99.0); Mean Platelet Volume 9.4 fL (7.4-10.4); Platelet Count 207 10^3/uL (130-400); Red Blood Cell Count 3.33 10^6/uL (4.20-5.40); Red Cell Dist. Width 15.8 % (11.5-14.5); White Blood Cell Count 2.2 10^3/uL (4.8-10.8)
[2024-02-18 09:20] LABS: ALT (SGPT) 24 U/L (0-35); AST (SGOT) 46 U/L (14-36); Albumin 2.6 g/dl (3.5-5.0); Alkaline Phosphatase 106 U/L (38-126); Blood Urea Nitrogen 10 mg/dl (7-17); Calcium 8.5 mg/dl (8.4-10.2); Carbon Dioxide 27 mmol/L (22-30); Chloride 104 mmol/L (98-107); Creatine Phosphokinase 126 U/L (30-135); Estimated Creatinine Clearance 75 ml/min; Glucose 100 mg/dl (70-99); Potassium 4.1 mmol/L (3.5-5.1); Sodium 137 mmol/L (135-145); Total Bilirubin 1.1 mg/dl (0.2-1.3); Total Protein 4.7 g/dl (6.3-8.2); eGFR > 60.00
[2024-02-18] MEDS: ROXICODONE 5 MG PO ×3 (10:06→20:11)
--- NOTE | 2024-02-18 10:58 | CM ---
Addendum entered by Jada Siddiqi 02/18/24 11:31:
CM spoke with daughter, Wanda, requesting referrals to [facility] and other local SNFS in [facility]. Referrals sent in [facility].
Original Note:
CM reviewed chart, met with patient bedside. Patient requesting call to family. CM spoke with patients daughter, Wanda, discussed SNF recommendation, provided with Medicare.gov to look up local SNFS. Wanda would like to call her sister to
discuss facilities, will call CM back with list of options. CM will continue to follow for all discharge planning needs.
Plan; SNF pending families choice of referrals, will need insurance auth.
[2024-02-18 11:00] VITALS: BP 115/82
--- NOTE | 2024-02-18 11:16 | W.PN.NEURO.1 ---
Documented by User: Lisa Ochoa NP 02/18/24 13:27
Today's Communication / Plan
-
.
Neuro Assessment/Plan
Assessment
This is a 84-year-old RH female who presented to on February 14, 2024 for with encephalopathy. According to EMR the patients found by her family sitting on the floor in the bathroom. She was dressed but stated that she had just come out of
the shower.
According to patient's daughter had progressive ambulatory and ' aphasia', for the last year. She has been noted to have shuffling gait, resting hand tremor as well as short-term memory problems. Her family has been taking care of
her financial affairs and helping with meals as well. Dulce is reportedly able to cook, take care of her ADLs and pets. No reports of visual hallucinations, carvajal, use of dopamine blockers or family history of neurodegenerative disease.
-Brain MRI 02/16/24 showed no acute infarcts, mod atrophy. Right mastoiditis.
-Routine EEG(02/16/24)likely unremarkable study for age despite low amplitudes bihemispherically equally.
I. Encephalopathy, likely mixed (neurodegenerative/vascular). Clinically stable
II. Parkinsonism
III. Ambulatory dysfunction.
Plan
-Delirium precautions, avoid CHECK EXAMINER suppressants.
-Sinemet trial, increasing dose to 25-100 1 tablet TID.
-PT evaluations.
-DVT prophylaxis.
-Patient may benefit from outpatient neuropsychological testing and ENEIDA scan imaging.
-Follow-up with Neurology in about 4 weeks, may see the COUNSELING DEPARTMENT CHAIR or one of the physicians.
Subjective/Objective
Subjective Data
Date of Service: February 18, 2024
No acute events overnight. Per patient's family she has returned to her baseline.
Objective Data
Vital Signs
Temp Pulse Resp BP Pulse Ox
98.2 F 105 18 127/78 96
02/18/24 07:00 02/18/24 07:00 02/18/24 07:00 02/18/24 07:00 02/18/24 08:35
Lab Results
02/18/24 07:55
02/18/24 07:55
Sodium 137 mmol/L (135-145) 02/18/24 07:55
Potassium 4.1 mmol/L (3.5-5.1) 02/18/24 07:55
BUN 10 mg/dl (7-17) 02/18/24 07:55
Glucose 100 mg/dl (70-99) H 02/18/24 07:55
Calcium 8.5 mg/dl (8.4-10.2) 02/18/24 07:55
Vitamin B12 913 pg/ml (239-931) 02/16/24 06:25
Ur Buprenorphine Negative (Negative) 02/15/24 04:17
Patient Allergies
No Known Allergies Allergy (Verified 02/14/24 21:29)
Review of Systems
-
History Source: Patient
EENT: Negative Blurry Vision, Decreased Vision or Swallowing Difficulty
Respiratory: Negative Cough or Trouble Breathing
Cardiac: Negative Chest Pain or Palpitations
Abdomen/GI: Diarrhea
Neuro: Weakness; Negative Dizzy, Headache, Numbness, Ataxia, Tremors or Speech Problem
Physical Exam
-
General: No Apparent Distress
Eyes: No Ptosis and PERRLA
HEENT: Normocephalic and Atraumatic
GI: Non-distended
Extremities: No Clubbing, No Cyanosis and No Edema
Psych: Confused
Extended Neurological Exam
Mood & Affect: Other (flat affect)
Attention Span & Concentration: Awake, Alert, Interactive and Unable to Perform 2 Step Request
Memory: Reduced (oriented to self and hospital, not time or situation)
Tremor: Hand Tremor Absent and Head Tremor Absent
Involuntary Movement: None
Speech: Other (slow verbal responses); Negative Dysarthric
Cranial Nerve II: Left Eye: Pupillary Reactivity Unremarkable, Pupillary Size Unremarkable and Visual Davalos Intact
Cranial Nerve II: Right Eye: Pupillary Reactivity Unremarkable, Pupillary Size Unremarkable and Visual Davalos Intact
Cranial Nerves III, IV, : Extraocular Movement: Unable to Assess (challenging to assess due to cooperation, appears to be restricted upgaze)
Cranial Nerve VII: Facial Symmetry: Normal Facial Symmetry
Cranial Nerve VIII: Hearing: Unremarkable Hearing to Normal Conversational Volume
Cranial Nerves IX, X: Palate Movement: Palate Elevation Symmetric
Cranial Nerve XII: Tongue Protusion: Midline
Muscle Strength, Overall: Other (BUE 4/5, BLE 2/5)
Muscle Bulk & Tone: Increased Tone (mild cogwheeling in BUE)
Pronator Drift: No Drift in Upper Extremities
Cold Sensation: Unable to Assess
Vibration Sensation: Unable to Assess
Touch Sensation: Unable to Assess
Coordination: [id number] Testing Unremarkable
Babinski Sign: Absent Bilaterally
Gait & Station: Unable to Assess
Data Reviewed
-
CT Head: Report Reviewed and Image Reviewed
MRI Head: Report Reviewed and Image Reviewed
Labs: Report Reviewed
Reviewed with: Physician and Patient
Medications
-
Active Medications
Generic Name Dose Route Start Last Admin
Trade Name Freq PRN Reason Stop Dose Admin
Acetaminophen 650 mg 02/16/24 08:45 02/18/24 08:49
Acetaminophen 325 Mg Tablet PO 03/15/24 08:44 650 mg
TID CHARAN Administration
Al Hydrox/Mg Hydrox/Simethicone 1 tablet 02/17/24 17:23
Maalox Plus PO 03/16/24 17:22
Q4HPRN PRN
abdominal pain
Carbidopa/Levodopa 1 tablet 02/18/24 13:25
Carbidopa (25 Mg)/Levodopa (100 Mg) Regular Release Tablet PO 03/16/24 15:59
TID CHARAN
Dicyclomine HCl 10 mg 02/17/24 17:23
Dicyclomine 10 Mg Capsule PO 03/16/24 17:22
QIDPRN PRN
abdominal pain
Enoxaparin Sodium 40 mg 02/15/24 18:00 02/17/24 16:59
Enoxaparin Sodium 40 Mg/0.4 Ml Syringe SC 03/14/24 17:59 40 mg
QPM CHARAN Administration
Ondansetron HCl 4 mg 02/15/24 03:33 02/15/24 11:09
Ondansetron 4 Mg/2 Ml Vial IV 03/14/24 03:32 4 mg
Q6HPRN PRN Administration
NAUSEA/VOMITING
Oxycodone HCl 5 mg 02/16/24 13:50 02/18/24 10:06
Oxycodone 5 Mg Regular Release Tablet PO 03/01/24 13:49 5 mg
Q4HPRN PRN Administration
moderate pain
Polyethylene Glycol 17 grams 02/15/24 12:00 02/18/24 08:17
Polyethylene Glycol Powder 17 Grams Packet PO 03/14/24 11:59 Not Given
BID CHARAN
Senna/Docusate Sodium 2 tablet 02/15/24 12:00 02/18/24 08:48
Docusate W/Senna (Mary-Colace) Tablet PO 03/14/24 11:59 Not Given
BID CHARAN
Sodium Bicarbonate 650 mg 02/16/24 08:45 02/18/24 08:48
Sodium Bicarbonate 650 Mg Tablet PO 03/14/24 11:34 650 mg
TID CHARAN Administration
Sodium Chloride 0 flush 02/15/24 03:00
Sodium Chloride 0.9% (Flush) Syringe IV 03/14/24 02:59
PER PROTOCOL CHARAN
Home Medications
�Medication �Instructions �Recorded
No Meds [No Current Medications] 02/14/24

Documented by User: Santiago Delaney MD 02/18/24 15:15
Today's Communication / Plan
-
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 After admission mental status was improved. Labs revealed
metabolic acidosis with elevated CK suggestive of rhabdomyolysis. CT abdomen revealed retroperitoneal soft tissue mass with concern for lymphadenopathy suspicious for lymphoma.
MRI brain revealed atrophy and small vessel disease. EEG was diffusely slow and with low voltage
Plan: Increase Sinemet to 25/100mg three times a day
PT/OT
--- NOTE | 2024-02-18 13:26 | CON.GI ---
Addendum entered and electronically signed by Cristiana Otero MD 02/18/24 15:01:
I saw and examined the patient.
The ASSOCIATE PROFESSOR OF THEATRE's note was reviewed and I agree with the note.
Comment: This is a 84-year-old female with recent diagnosis of skin T-cell lymphoma, history of fall and subsequent expressive aphasia and presented to the emergency room with altered mental status and fall at home and was diagnosed with
rhabdomyolysis since admission and also evaluated by neurology and thought to be related to TME and also possible undiagnosed parkinsonism syndrome and was started on Sinemet yesterday. Rhabdomyolysis has been improving with hydration. She also on
admission CT was noted to have retroperitoneal soft tissue mass and lymphadenopathy suspicious for lymphoma and has been seen by oncology and prominent right renal collecting system possible partial obstruction. We were consulted for persistent
abdominal pain and constipation.
Assessment and plan 1 abdominal pain most likely related to constipation and new finding of possible lymphoma based on retroperitoneal mass and lymph nodes noted input from oncology. She has been started on Bentyl and Gas-X as needed and also
MiraLAX and senna for constipation she did have a bowel movement on the may need enema as needed also. She did have an obstruction series repeated today which was unremarkable with no ileus or obstruction noted. She has minimal tenderness in
the lower abdomen on exam if pain worsens may need repeat CT. Limit narcotics, on admission CT no evidence of diverticulitis was noted she does have a left ovarian cyst also noted. Further workup per oncology.
Will sign off and will be available as needed
Original Note:
Consultation
-
Date/Time Consultation Requested: 02/18/2430
Date/Time Consultation Performed: 02/18/24 1320
Requesting Provider: melody Galeas MD
Performing Provider: REINIER Samuel, Cristiana Otero MD
Reason for Consultation: abdominal pain
Medical History
Chief Complaint / HPI
Chief Complaint: abdominal pain
History of Present Illness:
Pt is a 84yo with T cell lymphoma, diverticulosis, chronic expressive aphasia after a fall several years ago, parkinson like gait presents with change in mental status and fall down 24-48 hours. After admission mental status was improved but she
was noted with metabolic acidosis elevated CK with concern for Rhabdomyolysis with fall. Infectious work up neg. Ct notable for RP soft tissue mass with concern for lymphadenopathy suspicious for lymphoma. prominent right collecting systems
possible partial obstruction. She has been seen by neurology with concern for underlying Parkinson and oncology for concern for lymphoma. Labs notable for WBC 2.2 hbg 9.7(iron studies not c/w iron deficiency), AST 46 otherwise normal LFT's. She
was placed on Miralax BID but now with new complaints of LLQ pain. Pain in intermittent but worse with palpation. Difficulty say what makes if better or worse. With daughter assist wit language barrier and aphasia she admits to constipation with
straining but she denies dysphagia, odynophagia, GERD, nausea, vomiting, diarrhea, or rectal bleeding. No hx EGD or colonoscopy in past.
Past Medical History
Past Medical History: Cancer (t cell lymphoma) and Other (diverticulosis, expressive aphasia s/p fall, parkinson gait )
Social History
Tobacco: Non-Smoker
Alcohol: Occasional (wine)
Drug: None
Living: Alone
Employment: Retired
Family History
Family History: Other (no family hx GI issues )
Allergies / Home Medications
Allergy/AdvReac Type Severity Reaction Status Date / Time
No Known Allergies Allergy Verified 02/14/24 21:29
�Medication �Instructions �Recorded
No Meds [No Current Medications] 02/14/24
Review of Systems
-
Unable to obtain full review of systems at this time due to: Language Barrier (speak malay ) and Other (expressive aphasia)
History Source: Patient and Family (daughter )
Constitutional: Reports No Symptoms
EENT: Reports No Symptoms
Respiratory: Reports No Symptoms
Cardiac: Reports No Symptoms
Abdomen/GI: Reports Abdominal Pain and Constipated
: Reports No Symptoms
Musculoskeletal: Reports No Symptoms
Neurological: Reports Other (chronic aphagia with slow gait )
Endocrine: Reports No Symptoms
Hematologic/Lymphatic: Reports No Symptoms
Vital Signs
Temp Pulse Resp BP Pulse Ox
98.4 F 93 18 115/82 96
02/18/24 11:00 02/18/24 11:00 02/18/24 11:00 02/18/24 11:00 02/18/24 11:00
Physical Exam
Exam
General: Well Developed, Well Nourished and No Apparent Distress
HEENT: Normocephalic and Anicteric
Respiratory: Clear
Cardiac: Regular Rhythm
GI: Soft, Non Distended and Tender (LLQ)
Genito-urinary: No Costovertebral Tender
Musculoskeletal: No Clubbing and No Cyanosis
Skin: Warm and Dry
Neuro: Awake, Alert, AO x 3 and Other (some speech difficult with chronic aphasia )
Psych: Calm
Results
WBC 2.2 10^3/uL (4.8-10.8) L* 02/18/24 07:55
Hgb 9.7 g/dL (12.0-16.0) L 02/18/24 07:55
Hct 28.6 % (37.0-47.0) L 02/18/24 07:55
MCV 85.9 fL (81.0-99.0) 02/18/24 07:55
Plt Count 207 10^3/uL (130-400) 02/18/24 07:55
Absolute Neuts (auto) 7.5 10^3/uL (1.4-6.5) H 02/14/24 21:45
Sodium 137 mmol/L (135-145) 02/18/24 07:55
Potassium 4.1 mmol/L (3.5-5.1) 02/18/24 07:55
Chloride 104 mmol/L (98-107) 02/18/24 07:55
Carbon Dioxide 27 mmol/L (22-30) 02/18/24 07:55
BUN 10 mg/dl (7-17) 02/18/24 07:55
Creatinine 0.6 mg/dL (0.6-1.0) 02/18/24 07:55
Calcium 8.5 mg/dl (8.4-10.2) 02/18/24 07:55
Total Bilirubin 1.1 mg/dl (0.2-1.3) 02/18/24 07:55
AST 46 U/L (14-36) H 02/18/24 07:55
ALT 24 U/L (0-35) 02/18/24 07:55
Alkaline Phosphatase 106 U/L (38-126) 02/18/24 07:55
Lipase 119 U/L (23-300) 02/14/24 21:45
Diagnostic Image Results:
02/14/24 CT Abd/pelvis W Iv Cont
IMPRESSION:
1. Abnormal retroperitoneal soft tissue attenuation mass most likely representing lymphadenopathy as above. There is bilateral inguinal adenopathy. Findings suspicious for lymphoma or less likely metastatic disease.
2. Mild prominence of right renal collecting system as compared with the left and increased right perinephric stranding. As above, right ureter courses directly adjacent to the retroperitoneal mass and these findings could be related to partial
ureteral obstruction. No definitive abnormally decreased right renal attenuation to strongly suggest pyelonephritis.
3. Diverticulosis without diverticulitis.
4. Approximately 3.0 cm simple fluid attenuation cyst of the left adnexa, probable ovarian cyst
02/11/24 abd film Non obstructed bowel gas pattern.
Prior GI Procedures:
EGD: none
Colonoscopy: none
Assessment / Plan
-
Pt is a 84yo with T cell lymphoma, diverticulosis, chronic expressive aphasia after a fall several years ago, parkinson like gait presents with change in mental status and fall down 24-48 hours. After admission mental status was improved but she
was noted with metabolic acidosis elevated CK with concern for Rhabdomyolysis with fall. Infectious work up neg. Ct notable for RP soft tissue mass with concern for lymphadenopathy suspicious for lymphoma. prominent right collecting systems
possible partial obstruction. She has been seen by neurology with concern for underlying Parkinson and oncology for concern for lymphoma. Labs notable for WBC 2.2 hbg 9.7(iron studies not c/w iron deficiency), AST 46 otherwise normal LFT's. She
was placed on Miralax BID but now with new complaints of LLQ pain. Pain in intermittent but worse with palpation. Difficulty say what makes if better or worse. With daughter assist wit language barrier and aphasia she admits to constipation with
straining but she denies dysphagia, odynophagia, GERD, nausea, vomiting, diarrhea, or rectal bleeding. No hx EGD or colonoscopy in past.
s/p fall with concern for rhabdo with CK elevation on admission after being down for 24-28 hours
-change on mental status on admission
-abdominal pain new since admission-- LLQ
-constipation
-normocytic anemia
-T-cell lymphoma - skin
-retroperitoneal/ inguinal adenopathy
-R renal collecting system prominence
-ambulatory dysfunction with parkinsonism
-chronic expressive aphasia after fall in past
PLAN:
Etiology of LLQ abdominal pain related to constipation, adenopathy vs other
cont laxative regiment with miralax and senna BID
pt with + stool but still with pain on exam today
may need to consider CT with repeat oral contrast to exclude colitis, diverticulitis
cont pain control
appreciate oncology and neurology input
cont Bentyl PRN,limit narcotics -- which pt has been taking since admission which can worsen constipation
pt without colonoscopy screening on past
updated daughter
-
-
Thank you for consultation and allowing me to participate in the patient's care. Please call the prisoner classification interviewer GI physician during the after hours with any questions or concerns.
--- NOTE | 2024-02-18 13:47 | PN.CDI ---
CDI
- -
CDI:
Physician Documentation Request
Admit Date: 02/15/24 02:21
Dear Doctor Gudelia,
Patient admitted with rhabdomyolysis.
02/14 Nursing skin assessment, 'Stage 2 bilateral buttock pressure injuries, POA .... Stage 1 bilateral heel pressure injuries, POA.'
Physician documentation of the type and location of wounds is required for compliant documentation. Based on the above clinical findings and your assessment, please provide the following in your progress note:
Type (etiology) of ulcer/wound:
- Pressure (decubitus) ulcer
- Other
- Unable to determine
For a pressure ulcer, please also include the stage* of the ulcer:
- Stage 1 - Skin intact, non-blanchable redness
- Stage 2 - Partial thickness loss of dermis, includes intact or open blister
- Stage 3 - Full thickness tissue not including bone, tendon or muscle
- Stage 4 - Full thickness tissue loss, including exposed bone, tendon or muscle
- Unstageable - Full thickness loss in which the base of the ulcer is covered by slough (yellow, ayala, marshall, green or brown) and/or eschar (ayala, brown or black) in the wound bed.
- Unable to determine
Use of terms such as suspected, likely, concern for, or probable (associated with a specific diagnosis that is being evaluated, monitored, or treated as if it exists) are acceptable and can be coded in the inpatient setting, when documented at the
time of discharge.
Thank you,
Nataliya REAL,RN,CCDS
CDI Specialist
Available via tiger text
Please use your independent medical judgment in providing your response.
*Source: National Pressure Ulcer Advisory Panel (NPUAP)
--- NOTE | 2024-02-18 14:16 | PN.CDI ---
CDI
- -
CDI:
Physician Documentation Request
Admit Date: 02/15/24 02:21
Dear Doctor Gudelia,
Patient admitted with rhabdomyolysis.
ED note, 'Patient was found on the ground in her underwear. Unclear how long patient was on the floor.'
02/17 PN, 'Rhabdomyolysis....Patient found down....'
Pleased provide in your note the likely etiology of documented rhabdomyolysis:
Traumatic rhabdomyolysis
Non- traumatic rhabdomyolysis
Other
Use of terms such as suspected, likely, concern for, or probable (associated with a specific diagnosis that is being evaluated, monitored, or treated as if it exists) are acceptable and can be coded in the inpatient setting, when documented at the
time of discharge.
Thank you,
Nataliya REAL,RN,CCDS
CDI Specialist
Available via [employer] text
Please use your independent medical judgment in providing your response.
[2024-02-18 15:00] VITALS: BP 127/81
[2024-02-18] MEDS: SINEMET 25-100 1 TABLET PO ×2 (15:45→21:53)
--- NOTE | 2024-02-18 16:00 | WOUNDNOTE ---
[facility] RN NOTE: Reviewed chart and met with patient and daughter. ARUN Espinoza assisted with assessment. Per daughter, patient had fall and slid on the floor, causing abrasions to bilateral buttocks. The wounds were cleaned and petroleum jelly and adhesive
foam applied. Per report, patient is frequently incontinent of stools and foam dressings are helping to keep wounds clean. Patient also has a stage 1 PI of left heel. Patient is on a [employer] Accumax and turns assistance. ARUN Peterson given update.
Will confirm orders with hospitalist and follow as needed.
[2024-02-18] MEDS: LOVENOX 40 MG SC (17:24)
[2024-02-18] MEDS: ZOFRAN 4 MG IV (17:56)
--- NOTE | 2024-02-18 18:23 | PTCARENOTE ---
Pt's daughter at the bedside, states pt has been c/o dizziness and nausea all day. Pt previously OOB to [facility] multiple times today and pt had no c/o dizziness or nausea. B/P was 138/93. Pt medicated with Zofran 4mg IV. Will continue to monitor.
[2024-02-18] MEDS: MIRALAX 17 GRAMS PO (20:10)
[2024-02-18] MEDS: SENOKOT-S 2 TABLET PO (20:10)
--- NOTE | 2024-02-18 22:39 | W.PN.ONC2 ---
Today's Communication / Plan
-
Okay for DC tomorrow.
We will arrange follow--up in approximately 2 weeks as she will be in rehab initially upon discharge
Impression
Impression
ambulatory dysfunction
mental status changed
T-cell lymphoma - skin
retroperitoneal/ inguinal adenopathy
abdominal pain
R renal collecting system prominence
Rhabdomyolysis after fall
Plan
Plan
Creatinine kinase down to normal.
Abdominal pain resolved.
No objection to discharge to rehab tomorrow. We will arrange outpatient follow-up to discuss further staging and treatment of what appears to be T-cell lymphoma involving scalp and also retroperitoneal lymph nodes.
Ideally, she would undergo biopsy of the retroperitoneal nodes. She will also need PET scan.
Her cytopenias are concerning for marrow involvement and I anticipate that she will need a bone marrow biopsy in the outpatient setting.
Subjective/Objective
Chief Complaint
Medical oncology follow-up of T-cell lymphoma
Subjective
Patient seen in hospital bed, Sister Imelda present to translate. Patient had been having continued abdominal pain as of this morning, but was then able to move her bowels and felt much better.
Vital Signs:
Vital Signs
Temp Pulse Resp BP Pulse Ox
98.0 F 108 18 127/81 96
02/18/24 15:00 02/18/24 15:00 02/18/24 15:00 02/18/24 15:00 02/18/24 15:00
Lab Results:
Laboratory Data
WBC 2.2 10^3/uL (4.8-10.8) L* 02/18/24 07:55
Hgb 9.7 g/dL (12.0-16.0) L 02/18/24 07:55
Plt Count 207 10^3/uL (130-400) 02/18/24 07:55
eGFR > 60.00 02/18/24 07:55
Physical Exam
Appears awake, alert, chronically ill
Abdomen soft, nontender
[2024-02-18 23:57] VITALS: BP 139/81
[2024-02-19] MEDS: ROXICODONE 5 MG PO (03:35)
[2024-02-19] MEDS: ZOFRAN 4 MG IV ×2 (03:35→18:08)
[2024-02-19 07:30] VITALS: BP 117/73
[2024-02-19 08:06] LABS: Hematocrit 28.1 % (37.0-47.0); Hemoglobin 9.5 g/dL (12.0-16.0); Mean Corp Hgb Conc. 33.8 g/dL (33.0-37.0); Mean Corpuscular Hgb 29.1 pg (27.0-31.0); Mean Corpuscular Volume 86.2 fL (81.0-99.0); Mean Platelet Volume 9.4 fL (7.4-10.4); Platelet Count 209 10^3/uL (130-400); Red Blood Cell Count 3.26 10^6/uL (4.20-5.40); Red Cell Dist. Width 15.8 % (11.5-14.5); White Blood Cell Count 1.8 10^3/uL (4.8-10.8)
[2024-02-19] MEDS: SINEMET 25-100 1 TABLET PO (08:28)
[2024-02-19] MEDS: SODIUM BICARBONATE 650 MG PO (08:28)
[2024-02-19] MEDS: SENOKOT-S PO (08:29)
[2024-02-19] MEDS: MIRALAX PO ×2 (08:29→19:40)
[2024-02-19] MEDS: TYLENOL 650 MG PO ×3 (08:29→21:17)
[2024-02-19 08:38] LABS: ALT (SGPT) 18 U/L (0-35); AST (SGOT) 43 U/L (14-36); Albumin 2.7 g/dl (3.5-5.0); Alkaline Phosphatase 128 U/L (38-126); Blood Urea Nitrogen 8 mg/dl (7-17); Calcium 8.7 mg/dl (8.4-10.2); Carbon Dioxide 28 mmol/L (22-30); Chloride 105 mmol/L (98-107); Creatine Phosphokinase 74 U/L (30-135); Direct Bilirubin 0.3 mg/dl (0.0-0.4); Estimated Creatinine Clearance 75 ml/min; Glucose 101 mg/dl (70-99); Potassium 4.1 mmol/L (3.5-5.1); Sodium 139 mmol/L (135-145); Total Bilirubin 0.9 mg/dl (0.2-1.3); Total Protein 4.7 g/dl (6.3-8.2); eGFR > 60.00
[2024-02-19 08:47] LABS: Absolute Neutrophils -Man Diff 1.1 10^3/uL (1.4-6.5); Band Neutrophils 0 % (0-3); Eosinophils 1 % (0-6); Lymphocytes 23 % (20-51); Metamyelocytes 1 % (-); Monocytes 10 % (2-9); Platelets Checked Yes; Segmented Neutrophils 65 % (42-75)
[2024-02-19 08:48] LABS: Normal RBC Morphology Yes; Total Cells Counted 100
[2024-02-19 10:00] VITALS: BP 126/80; PULSE 105; O2SAT 95
[2024-02-19 10:10] VITALS: BP 126/80; PULSE 106; O2SAT 96
--- NOTE | 2024-02-19 11:03 | W.PN.HOSP.TC ---
Today's Communication/Plan
-
see A/P
Assessment / Plan
Assessment / Plan
HPI: Patient without any past medical history presented with altered mental status and found sitting at home by family members.
A/P:
# Acute toxic metabolic encephalopathy
TSH, ammonia level normal
Seen with [id number] at bedside, who states that patient's altered mental status has resolved, she is now at baseline
Appreciate neurology input, who suspects patient has acute toxic metabolic encephalopathy superimposed on undiagnosed parkinsonism syndrome
EEG shows generalized slowing, brain MRI shows right mastoiditis, mild�moderate diffuse cortical and cerebellar atrophy
PT/OT/SPL, patient lives alone, PT rec SNF
Trial of Sinemet started by neurology 02/16, daughter concern about S/E of Sinemet, asking for Neuro reevaluation
# Rhabdomyolysis, resolved
Patient found down, CPK 3327, Cr 1.1 and K of 5.7.
CPK down to 74, Cr down to 0.6
off IVFs as she has LE edema
# Anion Gap Metabolic acidosis, resolved
Lactic acid normal, likely from uremia
s/p IV fluids w/ sodium bicarb, s/p sodium bicarb oral supplements
# T-cell lymphoma - skin
# Leukopenia
T cell lymphoma on skin biopsy with lymphadenopathy on CT. Unable to have f/u with current onc
Appreciate oncology input, patient will likely need outpatient follow up and lymph node biopsy
# Hyperkalemia, resolved
K 5.7 on admission. No ECG changes.
Resolved status post Lokelma
# Acute urinary retention, resolved
Brokos inserted upon admission 02/13
passed void trial (incontinent)
Started laxatives
# Chronic aphasia
Likely from parkinsonism syndrome
# Acute kidney injury
Resolved with IV fluids
# Nonmyocardial injury troponin elevation
Denies chest pain, Echo with normal regional wall motion at rest
Continue to trend
# Anemia of chronic disease
Iron studies reviewed, iron stores normal
Trend hemoglobin
# Mastoiditis on brain MRI
Blood culture pending, procalcitonin negative
No tenderness on exam, no fever, patient does have leukopenia
Monitor off antibiotics
# Sacral skin tears from home
Offloading, wound care
# Abd pain
Discussed with oncology, likely from lymphoma
Continue pain meds
Pt was started trial of simethicone and Bentyl 02/16.
CT abd/pelvis:
1. Abnormal retroperitoneal soft tissue attenuation mass most likely representing lymphadenopathy. There is bilateral inguinal adenopathy. Findings suspicious for lymphoma or less likely metastatic disease.
2. Mild prominence of right renal collecting system as compared with the left and increased right perinephric stranding. As above, right ureter courses directly adjacent to the retroperitoneal mass and these findings could be related to partial
ureteral obstruction. No definitive abnormally decreased right renal attenuation to strongly suggest pyelonephritis.
Abd XR non-obstructing bowel gas pattern
Appreciate GI input, continue bowel regimen, limit narcotic
DVT PPX - Lovenox sq
Code Status - full code
Dispo: SNF
updated daughter on the phone
total time spent 51 min
Anticipated Discharge: 24 - 48 hours
Subjective/Interval History
-
Date of Service: February 19, 2024
Objective Data
-
Labs:
Laboratory Results
02/19/24
06:59
WBC 1.8 L*
Hgb 9.5 L
Hct 28.1 L
Plt Count 209
Sodium 139
Potassium 4.1
Chloride 105
Carbon Dioxide 28
BUN 8
Creatinine 0.6
Glucose 101 H
Calcium 8.7
Total Bilirubin 0.9
AST 43 H
ALT 18
Alkaline Phosphatase 128 H
Vital Signs:
Vital Signs
Temp Pulse Resp BP Pulse Ox
37.0 C 104 17 117/73 94
02/19/24 07:30 02/19/24 07:30 02/19/24 07:30 02/19/24 07:30 02/19/24 08:00
I&O
02/18/24 02/19/24 02/20/24
06:59 06:59 06:59
Intake Total 1320 / 1320 930 / 930
Output Total 4425 / 4425 1350 / 1350
Balance -3105 / -3105 -420 / -420
Review of Systems
-
Unable to obtain full review of systems at this time due to: Language Barrier
All other systems: Reviewed and negative
Physical Exam
-
General: Well Developed, Well Nourished, No Apparent Distress, Appears Chronically Ill and Obese; Negative Respiratory Distress
HEENT: Normocephalic, Atraumatic, Nose Appears Normal and Ears Appear Normal; Negative Oxygen
Respiratory: Clear to Auscultation and Non Labored Respirations; Negative Accessory Resp Muscle Use
Cardiac: Regular Rhythm and S1/S2
GI: Soft, Nontender, Nondistended and Normal Bowel Sounds
Skin: Warm and Dry
Neuro: Awake and Alert
Psych: Calm
Data Reviewed
-
Diagnostic Radiology: Report Reviewed by me
CT Scan: Report Reviewed by me
MRI: Report Reviewed by me
Labs: Labs Reviewed by me
--- NOTE | 2024-02-19 12:01 | CM ---
CM reviewed chart, spoke with patients daughter, discussed [facility] can offer bed, daughter agreeable. Patient will need insurance auth. Per Hospitalist, Neuro to reevaluation. CM will continue to follow for all discharge planning needs.
Plan; [facility], will require insurance auth, when medically stable.
Rowena
Dr. Jp Mccullough: [phone]
[2024-02-19 15:30] VITALS: BP 104/59
--- NOTE | 2024-02-19 15:33 | W.PN.NEURO.1 ---
Documented by User: Lisa Ochoa NP 02/19/24 15:42
Today's Communication / Plan
-
.
Neuro Assessment/Plan
Assessment
This is a 84-year-old RH female who presented to on February 14, 2024 for with encephalopathy. According to EMR the patients found by her family sitting on the floor in the bathroom. She was dressed but stated that she had just come out of
the shower.
According to patient's daughter had progressive ambulatory and ' aphasia', for the last year. She has been noted to have shuffling gait, resting hand tremor as well as short-term memory problems. Her family has been taking care of
her financial affairs and helping with meals as well. Dulce is reportedly able to cook, take care of her ADLs and pets. No reports of visual hallucinations, carvajal, use of dopamine blockers or family history of neurodegenerative disease.
-Brain MRI 02/16/24 showed no acute infarcts, mod atrophy. Right mastoiditis.
-Routine EEG(02/16/24)likely unremarkable study for age despite low amplitudes bihemispherically equally.
I. Encephalopathy, likely mixed (neurodegenerative/vascular). Clinically stable.
II. Parkinsonism. Sinemet trial with significant speech improvement but mild side effects of dizziness/nausea.
III. Ambulatory dysfunction.
Plan
-Delirium precautions, avoid ELECT[employer] ACC[employer]ORIES [employer]SEM[employer]ER suppressants.
-Sinemet trial. Decreased dosing from 25-100 1 tablet TID to 10-100 1 tablet BID. If patient is tolerating reduced dose, can increase back up to 25-100 1 tablet TID.
-PT evaluations.
-DVT prophylaxis.
-Patient would benefit from outpatient neuropsychological testing and ENEIDA scan imaging.
-Follow-up with Neurology in about 4 weeks, may see the ADMINISTRATOR SOCIAL WELFARE or one of the physicians.
Subjective/Objective
Subjective Data
Date of Service: February 19, 2024
No acute events overnight. Spoke with daughter at bedside regarding concerns of hallucinations/side effects of Sinemet. Per patient's daughter, the patient was hallucinating prior to hospital arrival, no further reports of hallucinations since.
Sinemet 25-100 1 tablet TID was initiated at 1600 on 02/18/24 due to Neurology evaluation being supportive of Parkinson disease. Daughter notes patient reported some dizziness and nausea last night, but today has no complaints. She notes that the
patient's speech is drastically improved today, the most fluent she has sounded in months.
Objective Data
Vital Signs
Temp Pulse Resp BP Pulse Ox
98.4 F 112 17 104/59 94
02/19/24 15:30 02/19/24 15:30 02/19/24 15:30 02/19/24 15:30 02/19/24 15:30
Lab Results
02/19/24 06:59
02/19/24 06:59
Sodium 139 mmol/L (135-145) 02/19/24 06:59
Potassium 4.1 mmol/L (3.5-5.1) 02/19/24 06:59
BUN 8 mg/dl (7-17) 02/19/24 06:59
Glucose 101 mg/dl (70-99) H 02/19/24 06:59
Calcium 8.7 mg/dl (8.4-10.2) 02/19/24 06:59
Vitamin B12 913 pg/ml (239-931) 02/16/24 06:25
Ur Buprenorphine Negative (Negative) 02/15/24 04:17
Patient Allergies
No Known Allergies Allergy (Verified 02/14/24 21:29)
Review of Systems
-
History Source: Patient
EENT: Negative Blurry Vision, Decreased Vision or Swallowing Difficulty
Respiratory: Negative Cough or Trouble Breathing
Cardiac: Negative Chest Pain or Palpitations
Abdomen/GI: Negative Nausea or Vomiting
Neuro: Weakness and Speech Problem; Negative Dizzy, Headache, Numbness, Ataxia or Tremors
Physical Exam
-
General: No Apparent Distress
Eyes: No Ptosis and PERRLA
HEENT: Normocephalic and Atraumatic
GI: Non-distended
Extremities: No Clubbing, No Cyanosis and No Edema
Psych: Confused
Extended Neurological Exam
Mood & Affect: Mood Unremarkable and Affect Unremarkable
Attention Span & Concentration: Awake, Alert and Interactive
Memory: Reduced (oriented to person and place, not time or situation)
Tremor: Hand Tremor Absent and Head Tremor Absent
Involuntary Movement: None
Speech: Quality Unremarkable and Quantity Unremarkable; Negative Rate of Production Unremarkable (slow responses)
Cranial Nerve II: Left Eye: Pupillary Reactivity Unremarkable, Pupillary Size Unremarkable and Visual Davalos Intact
Cranial Nerve II: Right Eye: Pupillary Reactivity Unremarkable, Pupillary Size Unremarkable and Visual Davalos Intact
Cranial Nerves III, IV, : Extraocular Movement: Extraocular Movement Full in all Directions (challenging to assess, appears restricted upgaze)
Cranial Nerve VII: Facial Symmetry: Normal Facial Symmetry
Cranial Nerve VIII: Hearing: Unremarkable Hearing to Normal Conversational Volume
Cranial Nerves IX, X: Palate Movement: Palate Elevation Symmetric
Cranial Nerve XII: Tongue Protusion: Midline
Muscle Strength, Overall: Reduced Throughout (BUE 4/5, BLE 2/5)
Muscle Bulk & Tone: Increased Tone (BUE with mild cogwheeling, improved today)
Pronator Drift: No Drift in Upper Extremities
Coordination: [id number] Testing Unremarkable
Data Reviewed
-
CT Head: Report Reviewed and Image Reviewed
MRI Head: Report Reviewed and Image Reviewed
Labs: Report Reviewed
Reviewed with: Physician, Patient and Family
Medications
-
Active Medications
Generic Name Dose Route Start Last Admin
Trade Name Freq PRN Reason Stop Dose Admin
Acetaminophen 650 mg 02/16/24 08:45 02/19/24 15:27
Acetaminophen 325 Mg Tablet PO 03/15/24 08:44 650 mg
TID CHARAN Administration
Al Hydrox/Mg Hydrox/Simethicone 1 tablet 02/17/24 17:23
Maalox Plus PO 03/16/24 17:22
Q4HPRN PRN
abdominal pain
Bisacodyl 10 mg 02/18/24 22:00 02/18/24 21:57
Bisacodyl 10 Mg Rectal Suppository RECTAL 03/17/24 21:59 Not Given
HS CHARAN
Carbidopa/Levodopa 1 tablet 02/19/24 20:00
Carbidopa (10 Mg)/Levodopa (100 Mg) Regular Release Tablet PO 03/18/24 19:59
BID CHARAN
Dicyclomine HCl 10 mg 02/17/24 17:23
Dicyclomine 10 Mg Capsule PO 03/16/24 17:22
QIDPRN PRN
abdominal pain
Enoxaparin Sodium 40 mg 02/15/24 18:00 02/18/24 17:24
Enoxaparin Sodium 40 Mg/0.4 Ml Syringe SC 03/14/24 17:59 40 mg
QPM CHARAN Administration
Ondansetron HCl 4 mg 02/15/24 03:33 02/19/24 03:35
Ondansetron 4 Mg/2 Ml Vial IV 03/14/24 03:32 4 mg
Q6HPRN PRN Administration
NAUSEA/VOMITING
Polyethylene Glycol 17 grams 02/15/24 12:00 02/19/24 08:29
Polyethylene Glycol Powder 17 Grams Packet PO 03/14/24 11:59 Not Given
BID CHARAN
Senna/Docusate Sodium 2 tablet 02/15/24 12:00 02/19/24 08:29
Docusate W/Senna (Mary-Colace) Tablet PO 03/14/24 11:59 Not Given
BID CHARAN
Sodium Chloride 0 flush 02/15/24 03:00
Sodium Chloride 0.9% (Flush) Syringe IV 03/14/24 02:59
PER PROTOCOL CHARAN
Home Medications
�Medication �Instructions �Recorded
No Meds [No Current Medications] 02/14/24

Documented by User: Santiago Delaney MD 02/19/24 21:01
Today's Communication / Plan
-
84-year-old female who was admitted with encephalopathy that resolved. had progressive ambulatory and ' aphasia', for the last year. and has been having shuffling gait, with resting tremor and short-term memory issues.. She was
diagnosed with Parkinsons disease and started on Sinemet 12.5/50(0.5 tab) PO TID and improved. Increased Sinemet dosing to 25/100 TID with marked improvement in speech and gait. Pat the felt dizzy and wished to change dose
PLAN: Decrease Sinemet 10/100 BID and titrate up as tolerated to Sinemet 25/100 mg TID
PT/OT
Pat may be discharged when stable.
[2024-02-19] MEDS: LOVENOX 40 MG SC (18:00)
[2024-02-19] MEDS: SENOKOT-S 2 TABLET PO (19:40)
[2024-02-19] MEDS: SINEMET 10-100 1 TABLET PO (19:41)
[2024-02-19] MEDS: MAALOX PLUS 1 TABLET PO (19:46)
[2024-02-19 23:18] VITALS: BP 127/73
[2024-02-20 07:00] VITALS: BP 140/99
--- NOTE | 2024-02-20 09:24 | CM ---
CM submitted auth through [employer], pending reference #[id number] for [facility]. CM will continue to follow for all discharge planning needs.
Plan; [facility] pending auth, will require ambulance transport.
[2024-02-20] MEDS: TYLENOL 650 MG PO ×3 (09:25→21:15)
[2024-02-20] MEDS: MIRALAX 17 GRAMS PO (09:25)
[2024-02-20] MEDS: SINEMET 10-100 1 TABLET PO ×2 (09:26→19:48)
[2024-02-20] MEDS: SENOKOT-S PO ×2 (09:26→19:48)
[2024-02-20 09:36] LABS: % Basophils 1.3 % (0-2); % Eosinophils 3.1 % (0-6); % Immature Granulocytes 1.3 % (0-0.5); % Lymphocytes 30.5 % (20.5-51.1); % Monocytes 10.3 % (1.7-9.3); % Neutrophils 53.5 % (42.2-75.2); Absolute Eosinophils 0.1 10^3/uL (0-0.7); Absolute Lymphocytes 0.7 10^3/uL (1.2-3.4); Absolute Monocytes 0.2 10^3/uL (0.1-0.6); Absolute Neutrophils 1.2 10^3/uL (1.4-6.5); Hematocrit 30.7 % (37.0-47.0); Hemoglobin 10.4 g/dL (12.0-16.0); Mean Corp Hgb Conc. 33.9 g/dL (33.0-37.0); Mean Corpuscular Hgb 29.5 pg (27.0-31.0); Mean Platelet Volume 9.4 fL (7.4-10.4); Nucleated Red Blood Cells % 0 %; Platelet Count 213 10^3/uL (130-400); Red Blood Cell Count 3.53 10^6/uL (4.20-5.40); Red Cell Dist. Width 16.1 % (11.5-14.5); White Blood Cell Count 2.2 10^3/uL (4.8-10.8)
--- NOTE | 2024-02-20 10:40 | W.PN.NEURO.1 ---
Documented by User: Lisa Ochoa NP 02/20/24 10:55
Today's Communication / Plan
-
.
Neuro Assessment/Plan
Assessment
This is a 84-year-old RH female who presented to on February 14, 2024 for with encephalopathy. According to EMR the patients found by her family sitting on the floor in the bathroom. She was dressed but stated that she had just come out of
the shower.
According to patient's daughter had progressive ambulatory and ' aphasia', for the last year. She has been noted to have shuffling gait, resting hand tremor as well as short-term memory problems. Her family has been taking care of
her financial affairs and helping with meals as well. Dulce is reportedly able to cook, take care of her ADLs and pets. No reports of visual hallucinations, carvajal, use of dopamine blockers or family history of neurodegenerative disease.
-Brain MRI 02/16/24 showed no acute infarcts, mod atrophy. Right mastoiditis.
-Routine EEG(02/16/24)likely unremarkable study for age despite low amplitudes bihemispherically equally.
I. Encephalopathy, likely mixed (neurodegenerative/vascular). Clinically stable. MRI brain negative for stroke.
II. Parkinsonism. Sinemet trial with significant speech improvement but mild side effects of dizziness/nausea.
III. Ambulatory dysfunction.
Plan
-Delirium precautions, avoid BRASS POURER suppressants.
-Sinemet trial. Decreased dosing from 25-100 1 tablet TID to 10-100 1 tablet BID. Patient appears to be tolerating this dose without any side effects, will increase to 10-100 1 tablet TID today. Can titrate back up to 25-100 1 tablet TID as an
outpatient.
-PT evaluations.
-DVT prophylaxis.
-Patient would benefit from outpatient neuropsychological testing and ENEIDA scan imaging.
-Follow-up with Neurology in about 4 weeks, may see the ENVIRONMENTAL CONSERVATION PROFESSOR or one of the physicians.
Subjective/Objective
Subjective Data
Date of Service: February 20, 2024
No acute events overnight. Patient reports feeling okay this morning, she denies any dizziness, vision changes, headache, swallowing difficulty, numbness, focal weakness, nausea, chest pain, palpitations, and shortness of breath.
Objective Data
Vital Signs
Temp Pulse Resp BP Pulse Ox
98.2 F 103 24 140/99 93
02/20/24 07:00 02/20/24 07:00 02/20/24 07:00 02/20/24 07:00 02/20/24 07:00
Lab Results
02/20/24 08:01
Sodium 139 mmol/L (135-145) 02/19/24 06:59
Potassium 4.1 mmol/L (3.5-5.1) 02/19/24 06:59
BUN 8 mg/dl (7-17) 02/19/24 06:59
Glucose 101 mg/dl (70-99) H 02/19/24 06:59
Calcium 8.7 mg/dl (8.4-10.2) 02/19/24 06:59
Vitamin B12 913 pg/ml (239-931) 02/16/24 06:25
Ur Buprenorphine Negative (Negative) 02/15/24 04:17
Patient Allergies
No Known Allergies Allergy (Verified 02/14/24 21:29)
Review of Systems
-
History Source: Patient
EENT: Negative Blurry Vision, Decreased Vision or Swallowing Difficulty
Respiratory: Negative Cough or Trouble Breathing
Cardiac: Negative Chest Pain or Palpitations
Abdomen/GI: Negative Nausea or Vomiting
Neuro: Speech Problem (slow speech); Negative Dizzy, Headache, Weakness, Numbness, Ataxia or Tremors
Physical Exam
-
General: No Apparent Distress
Eyes: No Ptosis and PERRLA
HEENT: Normocephalic and Atraumatic
Neck: Full Range of Motion
Respiratory: No Dyspnea
GI: Non-distended
Extremities: No Clubbing, No Cyanosis and No Edema
Extended Neurological Exam
Mood & Affect: Mood Unremarkable and Affect Unremarkable
Attention Span & Concentration: Awake, Alert and Interactive
Memory: Reduced (Oriented to person and place, forgetful to time and situation)
Tremor: Hand Tremor Absent and Head Tremor Absent
Speech: Quality Unremarkable and Moderately Reduced Output (very slow responses); Negative Quantity Unremarkable or Rate of Production Unremarkable (very slow responses)
Cranial Nerve II: Left Eye: Pupillary Reactivity Unremarkable and Visual Davalos Intact
Cranial Nerve II: Right Eye: Pupillary Reactivity Unremarkable, Pupillary Size Unremarkable and Visual Davalos Intact
Cranial Nerves III, IV, : Extraocular Movement: Negative Extraocular Movement Full in all Directions (restricted upgaze/challenging to assess due to cooperation)
Cranial Nerve V: Facial Sensation: Intact to Light Touch
Cranial Nerve VII: Facial Symmetry: Normal Facial Symmetry
Cranial Nerve VIII: Hearing: Unremarkable Hearing to Normal Conversational Volume
Cranial Nerves IX, X: Palate Movement: Palate Elevation Symmetric
Cranial Nerve XI: Shoulder Shrug: Unremarkable
Cranial Nerve XII: Tongue Protusion: Midline
Muscle Strength, Overall: Reduced Throughout
Muscle Bulk & Tone: Increased Tone (mild cogwheeling in RUE)
Pronator Drift: No Drift in Upper Extremities, Drift in Left Lower Extremity and Drift in Right Lower Extremity
Coordination: [id number]-[id number] Testing Unremarkable
Babinski Sign: Absent Bilaterally
Data Reviewed
-
CT Head: Report Reviewed and Image Reviewed
MRI Head: Report Reviewed and Image Reviewed
EEG: Report Reviewed
Labs: Report Reviewed
Reviewed with: Physician and Patient
Medications
-
Active Medications
Generic Name Dose Route Start Last Admin
Trade Name Freq PRN Reason Stop Dose Admin
Acetaminophen 650 mg 02/16/24 08:45 02/20/24 09:25
Acetaminophen 325 Mg Tablet PO 03/15/24 08:44 650 mg
TID CHARAN Administration
Al Hydrox/Mg Hydrox/Simethicone 1 tablet 02/17/24 17:23 02/19/24 19:46
Maalox Plus PO 03/16/24 17:22 1 tablet
Q4HPRN PRN Administration
abdominal pain
Bisacodyl 10 mg 02/18/24 22:00 02/19/24 21:16
Bisacodyl 10 Mg Rectal Suppository RECTAL 03/17/24 21:59 Not Given
HS CHARAN
Carbidopa/Levodopa 1 tablet 02/19/24 20:00 02/20/24 09:26
Carbidopa (10 Mg)/Levodopa (100 Mg) Regular Release Tablet PO 03/18/24 19:59 1 tablet
BID CHARAN Administration
Dicyclomine HCl 10 mg 02/17/24 17:23
Dicyclomine 10 Mg Capsule PO 03/16/24 17:22
QIDPRN PRN
abdominal pain
Enoxaparin Sodium 40 mg 02/15/24 18:00 02/19/24 18:00
Enoxaparin Sodium 40 Mg/0.4 Ml Syringe SC 03/14/24 17:59 40 mg
QPM CHARAN Administration
Ondansetron HCl 4 mg 02/15/24 03:33 02/19/24 18:08
Ondansetron 4 Mg/2 Ml Vial IV 03/14/24 03:32 4 mg
Q6HPRN PRN Administration
NAUSEA/VOMITING
Polyethylene Glycol 17 grams 02/15/24 12:00 02/20/24 09:25
Polyethylene Glycol Powder 17 Grams Packet PO 03/14/24 11:59 17 grams
BID CHARAN Administration
Senna/Docusate Sodium 2 tablet 02/15/24 12:00 02/20/24 09:26
Docusate W/Senna (Mary-Colace) Tablet PO 03/14/24 11:59 Not Given
BID CHARAN
Sodium Chloride 0 flush 02/15/24 03:00
Sodium Chloride 0.9% (Flush) Syringe IV 03/14/24 02:59
PER PROTOCOL CHARAN
Home Medications
�Medication �Instructions �Recorded
No Meds [No Current Medications] 02/14/24

Documented by User: Santiago Delaney MD 02/20/24 21:15
Today's Communication / Plan
-
84 yr. 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 She had slurred speech, resting tremor, bradykinesia and shuffling gait and started on Sinemet. Her speech improved and she had improved mobility with a
stable gait assisted with a cane
PLAN: Continue Sinemet 10/100 TID. Aspirin 81 mg daily
PT
Nutritional support
She may be discharged home
--- NOTE | 2024-02-20 10:47 | W.PN.HOSP.TC ---
Today's Communication/Plan
-
see A/P
Assessment / Plan
Assessment / Plan
HPI: Patient without any past medical history presented with altered mental status and found sitting at home by family members.
A/P:
# Acute toxic metabolic encephalopathy, resolved
TSH, ammonia level normal
Appreciate neurology input, suspects patient has acute toxic metabolic encephalopathy superimposed on undiagnosed parkinsonism syndrome
EEG shows generalized slowing,
brain MRI shows right mastoiditis, mild�moderate diffuse cortical and cerebellar atrophy
PT/OT/SPL, patient lives alone, PT rec SNF
Trial of Sinemet started by neurology 02/16, cont low dose and increase if tolerates
mental status is now at baseline
Neuro on board
# Rhabdomyolysis, resolved
Patient found down, CPK 3327, Cr 1.1 and K of 5.7.
CPK down to 74, Cr down to 0.6
off IVF
# Anion Gap Metabolic acidosis, resolved
Lactic acid normal, likely from uremia
s/p IV fluids w/ sodium bicarb, s/p sodium bicarb oral supplements
# T-cell lymphoma - skin
# Leukopenia
T cell lymphoma on skin biopsy with lymphadenopathy on CT. Unable to have f/u with current onc
Appreciate oncology input, patient will likely need outpatient follow up and lymph node biopsy
# Hyperkalemia, resolved
K 5.7 on admission. No ECG changes.
Resolved status post Lokelma
# Acute urinary retention, resolved
Brooks inserted upon admission 02/13
passed void trial (incontinent)
Started laxatives
# Chronic aphasia
Likely from parkinsonism syndrome
# Acute kidney injury
Resolved with IV fluids
# Nonmyocardial injury troponin elevation
Denies chest pain, Echo with normal regional wall motion at rest
Continue to trend
# Anemia of chronic disease
Iron studies reviewed, iron stores normal
Trend hemoglobin
# Mastoiditis on brain MRI
Blood culture pending, procalcitonin negative
No tenderness on exam, no fever, patient does have leukopenia
Monitor off antibiotics
# Sacral skin tears from home
Offloading, wound care
# Abd pain
Discussed with oncology, likely from lymphoma
Continue pain meds
Pt was started trial of simethicone and Bentyl 02/16.
CT abd/pelvis:
1. Abnormal retroperitoneal soft tissue attenuation mass most likely representing lymphadenopathy. There is bilateral inguinal adenopathy. Findings suspicious for lymphoma or less likely metastatic disease.
2. Mild prominence of right renal collecting system as compared with the left and increased right perinephric stranding. As above, right ureter courses directly adjacent to the retroperitoneal mass and these findings could be related to partial
ureteral obstruction. No definitive abnormally decreased right renal attenuation to strongly suggest pyelonephritis.
Abd XR non-obstructing bowel gas pattern
Appreciate GI input, continue bowel regimen, limit narcotic
DVT PPX - Lovenox sq
Code Status - full code
Dispo: SNF
called daughter 3 times to update, calls not answered
DW CM
Anticipated Discharge: Within 24 hours
Subjective/Interval History
-
Date of Service: February 20, 2024
Objective Data
-
Labs:
Laboratory Results
02/20/24
08:01
WBC 2.2 L*
Hgb 10.4 L
Hct 30.7 L
Plt Count 213
Sodium Pending
Potassium Pending
Chloride Pending
Carbon Dioxide Pending
BUN Pending
Creatinine Pending
Glucose Pending
Calcium Pending
Vital Signs:
Vital Signs
Temp Pulse Resp BP Pulse Ox
36.8 C 103 24 140/99 93
02/20/24 07:00 02/20/24 07:00 02/20/24 07:00 02/20/24 07:00 02/20/24 07:00
I&O
02/19/24 02/20/24 02/21/24
06:59 06:59 06:59
Intake Total 930 / 930 240 / 240
Output Total 1350 / 1350 300 / 300
Balance -420 / -420 -60 / -60
Review of Systems
-
Unable to obtain full review of systems at this time due to: Language Barrier (Kazakh)
All other systems: Reviewed and negative
Physical Exam
-
General: Well Developed, Well Nourished, No Apparent Distress and Obese; Negative Respiratory Distress
HEENT: Normocephalic, Atraumatic, Nose Appears Normal and Ears Appear Normal; Negative Oxygen
Respiratory: Clear to Auscultation and Non Labored Respirations; Negative Accessory Resp Muscle Use
Cardiac: Regular Rhythm and S1/S2
GI: Soft, Nontender, Nondistended and Normal Bowel Sounds
Skin: Warm and Dry
Neuro: Awake and Alert
Psych: Calm
Data Reviewed
-
Diagnostic Radiology: Report Reviewed by me
CT Scan: Report Reviewed by me
MRI: Report Reviewed by me
Labs: Labs Reviewed by me
[2024-02-20 12:39] LABS: Blood Urea Nitrogen 8 mg/dl (7-17); Calcium 9.1 mg/dl (8.4-10.2); Carbon Dioxide 26 mmol/L (22-30); Chloride 102 mmol/L (98-107); Estimated Creatinine Clearance 64 ml/min; Glucose 106 mg/dl (70-99); Potassium 4.3 mmol/L (3.5-5.1); Sodium 138 mmol/L (135-145); eGFR > 60.00
[2024-02-20 15:04] VITALS: BP 106/60
[2024-02-20] MEDS: LOVENOX 40 MG SC (16:37)
[2024-02-20] MEDS: MIRALAX PO (19:48)
[2024-02-20 23:16] VITALS: BP 124/76
[2024-02-21 06:16] VITALS: BMI 32.1
[2024-02-21 07:30] VITALS: BP 140/76
--- NOTE | 2024-02-21 08:26 | W.PN.HOSP.TC ---
Addendum entered and electronically signed by Jackie Galeas MD 02/21/24 13:01:
total DC time 37 min
Original Note:
Today's Communication/Plan
-
see A/P
Assessment / Plan
Assessment / Plan
HPI: Patient without any past medical history presented with altered mental status and found sitting at home by family members.
A/P:
# Acute toxic metabolic encephalopathy, resolved
TSH, ammonia level normal
Appreciate neurology input, suspects patient has acute toxic metabolic encephalopathy superimposed on undiagnosed parkinsonism syndrome
EEG shows generalized slowing,
brain MRI shows right mastoiditis, mild�moderate diffuse cortical and cerebellar atrophy
PT/OT/SPL, patient lives alone, PT rec SNF
Trial of Sinemet started by neurology 02/16, cont low dose and increase if tolerates
mental status is now at baseline
Neuro on board
# Rhabdomyolysis, resolved
Patient found down, CPK 3327, Cr 1.1 and K of 5.7.
CPK down to 74, Cr down to 0.6
off IVF
# Anion Gap Metabolic acidosis, resolved
Lactic acid normal, likely from uremia
s/p IV fluids w/ sodium bicarb, s/p sodium bicarb oral supplements
# T-cell lymphoma - skin
# Leukopenia
T cell lymphoma on skin biopsy with lymphadenopathy on CT. Unable to have f/u with current onc
Appreciate oncology input, patient will likely need outpatient follow up and lymph node biopsy
# Hyperkalemia, resolved
K 5.7 on admission. No ECG changes.
Resolved status post Lokelma
# Acute urinary retention, resolved
Brooks inserted upon admission 02/13
passed void trial (incontinent)
Started laxatives
# Chronic aphasia
Likely from parkinsonism syndrome
# Acute kidney injury
Resolved with IV fluids
# Nonmyocardial injury troponin elevation
Denies chest pain, Echo with normal regional wall motion at rest
Continue to trend
# Anemia of chronic disease
Iron studies reviewed, iron stores normal
Trend hemoglobin
# Mastoiditis on brain MRI
Blood culture pending, procalcitonin negative
No tenderness on exam, no fever, patient does have leukopenia
Monitor off antibiotics
# Sacral skin tears from home
Offloading, wound care
# Abd pain
Discussed with oncology, likely from lymphoma
Continue pain meds
Pt was started trial of simethicone and Bentyl 02/16.
CT abd/pelvis:
1. Abnormal retroperitoneal soft tissue attenuation mass most likely representing lymphadenopathy. There is bilateral inguinal adenopathy. Findings suspicious for lymphoma or less likely metastatic disease.
2. Mild prominence of right renal collecting system as compared with the left and increased right perinephric stranding. As above, right ureter courses directly adjacent to the retroperitoneal mass and these findings could be related to partial
ureteral obstruction. No definitive abnormally decreased right renal attenuation to strongly suggest pyelonephritis.
Abd XR non-obstructing bowel gas pattern
Appreciate GI input, continue bowel regimen, limit narcotic
DVT PPX - Lovenox sq
Code Status - full code
Dispo: SNF
updated daughter on the phone
Anticipated Discharge: Within 24 hours
Subjective/Interval History
-
Date of Service: February 21, 2024
Objective Data
-
Labs:
Laboratory Results
02/21/24
08:11
WBC Pending
Hgb Pending
Hct Pending
Plt Count Pending
Sodium Pending
Potassium Pending
Chloride Pending
Carbon Dioxide Pending
BUN Pending
Creatinine Pending
Glucose Pending
Calcium Pending
Vital Signs:
Vital Signs
Temp Pulse Resp BP Pulse Ox
36.6 C 104 20 140/76 96
02/21/24 07:30 02/21/24 07:30 02/21/24 07:30 02/21/24 07:30 02/21/24 07:30
I&O
02/20/24 02/21/24 02/22/24
06:59 06:59 06:59
Intake Total 240 / 240 1000 / 1000
Output Total 300 / 300 875 / 875
Balance -60 / -60 125 / 125
Review of Systems
-
Unable to obtain full review of systems at this time due to: Language Barrier (Martiniquais)
All other systems: Reviewed and negative
Physical Exam
-
General: Well Developed, Well Nourished, No Apparent Distress, Appears Chronically Ill and Obese; Negative Respiratory Distress
HEENT: Normocephalic, Atraumatic, Nose Appears Normal and Ears Appear Normal; Negative Oxygen
Respiratory: Clear to Auscultation and Non Labored Respirations; Negative Accessory Resp Muscle Use
Cardiac: Regular Rhythm and S1/S2
GI: Soft, Nontender, Nondistended and Normal Bowel Sounds
Skin: Warm and Dry
Neuro: Awake and Alert
Psych: Calm
Data Reviewed
-
Diagnostic Radiology: Report Reviewed by me
CT Scan: Report Reviewed by me
MRI: Report Reviewed by me
Labs: Labs Reviewed by me
--- NOTE | 2024-02-21 08:54 | CM ---
Addendum entered by Jada Siddiqi 02/21/24 12:25:
Ambulance transport scheduled for 5:00 p.m. Daughter updated.
Addendum entered by Jada Siddiqi 02/21/24 11:54:
CM received call from [facility] in Admissions ([phone]) have open bed and can accept patient today. Hospitalist and nurse update, plan for discharge today. CM placed call to patients daughter, agreeable to discharge today. IMM reviewed verbally,
placed in chart. Facility requesting evening transport.
Plan; [facility] today, ambulance transport
Report: [phone]

Addendum entered by Jada Siddiqi 02/21/24 11:28:
CM received call from [employer], auth approved #[id number] 03/02-03/04, next review 03/05 to Joyce ([phone]), fax [phone]. Per [facility] in Admissions, next open bed is Sunday. TT to Hospitalist with update. CM spoke with patients
daughter, Wanda, discussed facility can accept Sunday. Auth information provided to [facility] in Admissions. Patient will require ambulance transport.
Plan; [facility], 02/23/24- will require ambulance transport.
Original Note:
CM called [employer] to check status of auth pending reference #[id number] for [facility]. CM informed authorization still pending. CM received call from [facility], Admissions at [facility], will not have a bed today and will have a bed
tomorrow, 02/22/24. CM will continue to follow for all discharge planning needs.
Plan; [facility], auth pending review, patient will require ambulance transport.
[2024-02-21 09:10] LABS: % Basophils 1.6 % (0-2); % Eosinophils 4.5 % (0-6); % Immature Granulocytes 1.2 % (0-0.5); % Lymphocytes 23.8 % (20.5-51.1); % Monocytes 13.5 % (1.7-9.3); % Neutrophils 55.4 % (42.2-75.2); Absolute Eosinophils 0.1 10^3/uL (0-0.7); Absolute Lymphocytes 0.6 10^3/uL (1.2-3.4); Absolute Monocytes 0.3 10^3/uL (0.1-0.6); Absolute Neutrophils 1.4 10^3/uL (1.4-6.5); Hematocrit 30.6 % (37.0-47.0); Hemoglobin 10.1 g/dL (12.0-16.0); Mean Corpuscular Hgb 28.1 pg (27.0-31.0); Mean Platelet Volume 9.2 fL (7.4-10.4); Nucleated Red Blood Cells % 0 %; Platelet Count 230 10^3/uL (130-400); Red Cell Dist. Width 16.5 % (11.5-14.5); White Blood Cell Count 2.4 10^3/uL (4.8-10.8)
[2024-02-21 10:18] LABS: Blood Urea Nitrogen 9 mg/dl (7-17); Carbon Dioxide 27 mmol/L (22-30); Chloride 103 mmol/L (98-107); Estimated Creatinine Clearance 63 ml/min; Glucose 107 mg/dl (70-99); Potassium 4.3 mmol/L (3.5-5.1); Sodium 137 mmol/L (135-145); eGFR > 60.00
--- NOTE | 2024-02-21 11:49 | W.PN.ONC2 ---
Today's Communication / Plan
-
Discharge to SNF planned today -pt has an OV scheduled with Dr. Escobar 03/11/2024 at 215pm
Impression
Impression
ambulatory dysfunction
mental status changed
T-cell lymphoma - skin
retroperitoneal/ inguinal adenopathy
abdominal pain
R renal collecting system prominence
Rhabdomyolysis after fall
Plan
Plan
No objection to discharge to rehab. Outpatient follow-up arranged to discuss further staging and treatment of what appears to be T-cell lymphoma involving scalp and also retroperitoneal lymph nodes.
Ideally, she would undergo biopsy of the retroperitoneal nodes. She will also need PET scan.
Her cytopenias are concerning for marrow involvement and I anticipate that she will need a bone marrow biopsy in the outpatient setting.
Subjective/Objective
Chief Complaint
no new complaints
Subjective
declined nepali interpreter deaf
reports back pain, using tylenol prn. Last dose of oxy IR 02/18
nausea resolved with cessation of narcotic
constipation resolved with miralax
CBC stable
afebrile, no hypoxia or hypotension
Vital Signs:
Vital Signs
Temp Pulse Resp BP Pulse Ox
97.8 F 104 20 140/76 96
02/21/24 07:30 02/21/24 07:30 02/21/24 07:30 02/21/24 07:30 02/21/24 07:30
Lab Results:
Laboratory Data
WBC 2.4 10^3/uL (4.8-10.8) L* 02/21/24 08:11
Hgb 10.1 g/dL (12.0-16.0) L 02/21/24 08:11
Plt Count 230 10^3/uL (130-400) 02/21/24 08:11
eGFR > 60.00 02/21/24 08:11
Physical Exam
HEENT: Moist Mucous Membranes; No Jaundice
Cardiology: S1 and S2
Pulmonary: Clear
GI: Soft
Extremities: Edema (bilateral trace ankle edema)
Review of Systems
Review of Systems
Review of systems notable for subjective, otherwise negative
[2024-02-21] MEDS: SINEMET 10-100 1 TABLET PO (12:30)
[2024-02-21] MEDS: MIRALAX PO (12:30)
[2024-02-21] MEDS: TYLENOL 650 MG PO ×2 (12:30→17:17)
[2024-02-21] MEDS: SENOKOT-S PO (12:31)
--- NOTE | 2024-02-21 12:32 | W.DCSUMMARY ---
Discharge Summary
Discharge Data
Date of Admission: 02/15/24
Date of Discharge: 02/21/24
-
Pending Results: No
Hospital Course
Principal Diagnosis:
Acute metabolic encephalopathy, resolved, likely due to Parkinson syndrome
Acute kidney injury (TA) with rhabdomyolysis, both resolved with IV fluid
Acute urinary retention, resolved
Abdominal pain likely from lymphoma
Chronic Diagnoses:�
T-cell lymphoma on skin with likely retroperitoneal lymphadenopathy.
Chronic aphasia, likely from parkinsonism syndrome
Anemia of chronic disease
Consultations:�
Neurology
Oncology
Gastroenterology
Procedures:�
None
Clinical course:�
This is a 84-year-old female, with past medical history as stated above, who presented with confusion.
Problem 1:
Acute metabolic encephalopathy, resolved, likely due to Parkinson syndrome.
Her TSH and ammonia levels were within normal limit.
Her brain MRI did not show any significant intracranial abnormality, but noted mild�moderate diffuse cortical and cerebellar atrophy.
Her EEG noted generalized slowing.
She was started with Sinemet by neurology for likely Parkinson syndrome.
She can continue with Sinemet going forward until further directed by neurologist outpatient.
Problem 2:
TA with rhabdomyolysis, both resolved with IV fluid.
Problem 3:
Anion Gap Metabolic acidosis, resolved with IV fluid with sodium bicarb.
Problem 4:
Acute urinary retention, resolved.
Brooks was inserted on admission on 02/13.
She passed voiding trial (was incontinent) during hospital stay.
Problem 5:
Abdominal pain likely from lymphoma, resolved.
Her CT abd/pelvis noted abnormal retroperitoneal soft tissue likely representing lymphadenopathy.
Her follow up Abd XR did not show any obstructing bowel gas pattern.
Her abdominal pain resolved uneventfully on its own.
As for the rest of her medical problems, they were stable during her hospital stay.
Discharge Plan
-
Patient Disposition: Fpc/SNF
Discharge Diagnosis/Procedures: Confusion (resolved);
Possible undiagnosed parkinsonism syndrome (Sinemet started);
Rhabdomyolysis (resolved);
Acute urinary retention (resolved);
Abdominal pain (felt likely due to retroperitoneal soft tissue from lymphadenopathy/T-cell lymphoma)
Condition: Fair
Diet: As tolerated
Activity: As tolerated
Driving Restrictions: No driving
Wound Care: Wound Care Instructions
Bilateral Buttock Abrasions- Clean with normal saline or soap and water. Apply Aquaphor or Vaseline and cover with silicone border foam. Change Q 48 hours and PRN if loose or soiled.
Bilateral Heels- Apply no-sting barrier and cover with adhesive foam. Change Q 48 hours and PRN for drainage.
Activity Restrictions/Additional Instructions:
Follow up with Neurology for suspect parkinsonism syndrome
Referrals:
Rex Ibarra MD [Family Provider] - in less than 1 week
Lisa Ochoa NP [Specified Professional Personl] - in two to three weeks
Prescriptions:
New
carbidopa-levodopa 10-100 mg Tablet
1 tab PO BID Qty: 60 0RF
Discharge Orders:
Discharge Patient (As Directed); Ordered 02/21/24
Ordered By: Jackie Galeas
Discharge Date and Time
Print Language: SYRIAC
[2024-02-21 15:00] VITALS: BP 106/59
[2024-02-21] MEDS: FLUAD (65 yr+) 2024-2025 FORMULA 0.5 ML IM (17:09)
[2024-02-21] MEDS: PREVNAR 20 0.5 ML IM (17:12)
== END 2024-02-21 17:40 | DRG 557 ==
LOC: 4 WEST ACU 02:21
PROVIDERS: Family Medicine; Physician Assistant; ADMITTING PHYSICIAN Internal Medicine; ATTENDING PHYSICIAN Internal Medicine; CONSULT PHYSICIAN Internal Medicine Gastroenterology; CONSULT PHYSICIAN Psychiatry & Neurology Neurology; EMERGENCY PHYSICIAN Emergency Medicine; FAMILY PHYSICIAN Family Medicine; OTHER PHYSICIAN Internal Medicine Hematology & Oncology
PROC: 5A09357 Assistance with Respiratory Ventilation, Less than 24 Consecutive Hours, Continuous Positive Airway Pressure (ICD-10-PCS; 2024-02-21)
DX: M62.82 Rhabdomyolysis (principal); G93.41 Metabolic encephalopathy; C84.A0 Cutaneous T-cell lymphoma, unspecified, unspecified site; E87.20 Acidosis, unspecified; N17.9 Acute kidney failure, unspecified; R47.01 Aphasia; D63.8 Anemia in other chronic diseases classified elsewhere; G20.A1 Parkinson's disease without dyskinesia, without mention of fluctuations; G93.89 Other specified disorders of brain; L89.312 Pressure ulcer of right buttock, stage 2; L89.322 Pressure ulcer of left buttock, stage 2; L89.611 Pressure ulcer of right heel, stage 1; L89.621 Pressure ulcer of left heel, stage 1; E86.0 Dehydration; E87.5 Hyperkalemia; K57.30 Diverticulosis of large intestine without perforation or abscess without bleeding; N83.209 Unspecified ovarian cyst, unspecified side; W19.XXXA Unspecified fall, initial encounter; Y92.009 Unspecified place in unspecified non-institutional (private) residence as the place of occurrence of the external cause; Z91.81 History of falling; R26.2 Difficulty in walking, not elsewhere classified; R33.9 Retention of urine, unspecified; R74.01 Elevation of levels of liver transaminase levels; R74.8 Abnormal levels of other serum enzymes; Z86.73 Personal history of transient ischemic attack (TIA), and cerebral infarction without residual deficits
CPT/HCPCS: 51701; 70450; 70551; 71045; 72125; 72170; 74018; 74177; 80048; 80053; 80179; 80306; 81003; 81015; 82140; 82248; 82550; 82607; 82728; 82746; 83036; 83540; 83550; 83605; 83690; 83735; 84145; 84443; 84484; 85025; 85027; 87040; 87086; 87502; 87811; 92526; 92610; 93005; 93306; 94640; 95816; 96360; 97163; 97167; 97530; 97535; 99285; J7030; Q9967

== ENCOUNTER 2024-03-10 19:47 | Emergency (ER) | payer OTHER, SELFPAY ==
[2024-03-10 19:51] VITALS: BP 132/75
[2024-03-10 20:35] LABS: % Basophils 0.7 % (0-2); % Eosinophils 1.5 % (0-6); % Immature Granulocytes 1.5 % (0-0.5); % Lymphocytes 19.6 % (20.5-51.1); % Neutrophils 62.7 % (42.2-75.2); Absolute Eosinophils 0.1 10^3/uL (0-0.7); Absolute Immature Granulocytes 0.1 10^3/uL (0-0.05); Absolute Lymphocytes 1.1 10^3/uL (1.2-3.4); Absolute Monocytes 0.8 10^3/uL (0.1-0.6); Absolute Neutrophils 3.4 10^3/uL (1.4-6.5); Hematocrit 31.4 % (37.0-47.0); Hemoglobin 10.8 g/dL (12.0-16.0); Mean Corp Hgb Conc. 34.4 g/dL (33.0-37.0); Mean Corpuscular Hgb 28.9 pg (27.0-31.0); Mean Platelet Volume 9.5 fL (7.4-10.4); Nucleated Red Blood Cells % 0 %; Platelet Count 239 10^3/uL (130-400); Red Blood Cell Count 3.74 10^6/uL (4.20-5.40); Red Cell Dist. Width 17.5 % (11.5-14.5); White Blood Cell Count 5.4 10^3/uL (4.8-10.8)
[2024-03-10 20:47] LABS: ALT (SGPT) 16 U/L (0-35); AST (SGOT) 29 U/L (14-36); Albumin 3.8 g/dl (3.5-5.0); Alkaline Phosphatase 110 U/L (38-126); Blood Urea Nitrogen 22 mg/dl (7-17); Carbon Dioxide 19 mmol/L (22-30); Chloride 102 mmol/L (98-107); Glucose 101 mg/dl (70-99); Potassium 4.1 mmol/L (3.5-5.1); Sodium 136 mmol/L (135-145); Total Bilirubin 1.4 mg/dl (0.2-1.3); Total Protein 6.1 g/dl (6.3-8.2); eGFR > 60.00
[2024-03-10 22:32] LABS: Urine Albumin Negative (Neg - Trace); Urine Bilirubin Negative (Negative); Urine Character Slightly Cloudy (Clear); Urine Color Yellow; Urine Glucose Negative (Negative); Urine Ketone Negative (Negative); Urine Leukocyte Trace (Negative); Urine Nitrite Negative (Negative); Urine Occult Blood 2+ (Negative); Urine Urobilinogen Negative (Neg - 1+)
[2024-03-10 22:47] LABS: Urine Bacteria Few (Negative); Urine Red Blood Cell 0-2 /HPF (0-2); Urine Squamous Cell 16-20 /LPF (Few); Urine White Cell 16-20 /HPF (0-5)
[2024-03-10 22:51] VITALS: BP 130/83
--- NOTE | 2024-03-10 23:32 | ED.GENMED ---
History of Present Illness
General
Chief Complaint: Fall
Source: patient and family (Daughter)
Time Seen by Provider: 03/10/24 23:12
History of Present Illness
History of Present Illness:
84-year-old female brought to the emergency room after a fall. Patient struck the left side of her head. She is complaining of pain in her buttocks. Patient has been experiencing pelvic pain since her fall a few weeks ago. However the pain is
increased in severity. Patient's daughter is with her and states that when the patient was discharged from rehab she was doing quite well. She seemed fine to be back at her independent living scenario. However over the weekend she began eating
less. Today she seems much more weak than she was when she was discharged from rehab.
Phy Exam
Physical Exam
Physical Exam:
General: Awake, Alert, Oriented X3. Appears stated age and chronically ill
Vitals: Mildly tachycardic
Head: Atraumatic
Eyes: Pupils equal, EOMI
Throat: Airway intact, no exudates, dry mucosa
Neck: Trachea midline
Lungs: Clear and equal b/l
Heart: Regular rate, no murmurs
Abd: Soft, Nontender, No pulsatile mass
Pelvis: Left buttock discomfort to palpation
Neuro: Nonfocal
Skin: Warm, dry, no rash
Extremities: pulses equal b/l, 2+ edema
Course
Orders/Labs/Results
Orders:
Orders
03/10/24 20:04
EKG [Electrocardiogram (*1)] Urgent
Reason for Study: Vertigo / Dizzy
CT Head W/o Iv Contrast Urgent
Reason For Exam: fall hit L side head/dizziness
03/10/24 20:05
EKG- Treatment ONCE
03/10/24 20:25
Complete Blood Count/With Diff Urgent
Comprehensive Metabolic Panel Urgent
03/10/24 22:05
Urinalysis Reflex To Culture Urgent
Date Specimen was Collected: 03/10/24
Time Specimen was Collected: 22:02
Urine Microscopic Reflex Cult Urgent
Urine Culture Urgent
MINERVA Source: U
Specimen Description:
Date Specimen was Collected: 03/10/24
Time Specimen was Collected: 22:02
03/10/24 23:31
0.9% Sodium Chloride 500 ml [Nss] 500 ml IV BOLUS
03/11/24 00:01
CR Chest - 2 Views Urgent
Reason For Exam: increased work of breathing
CR Pelvis - 1 Or 2 Views Urgent
Reason For Exam: pain after a fall
Abnormal Lab Results
03/10/24 03/10/24
20:25 22:05
RBC 3.74 L 10^6/uL
(4.20-5.40)
Hgb 10.8 L g/dL
(12.0-16.0)
Hct 31.4 L %
(37.0-47.0)
RDW 17.5 H %
(11.5-14.5)
Abs Immat Gran (auto) 0.1 H 10^3/uL
(0-0.05)
Absolute Lymphs (auto) 1.1 L 10^3/uL
(1.2-3.4)
Absolute Monos (auto) 0.8 H 10^3/uL
(0.1-0.6)
Immature Gran % 1.5 H %
(0-0.5)
Lymphocytes % 19.6 L %
(20.5-51.1)
Monocytes % 14.0 H %
(1.7-9.3)
Carbon Dioxide 19 L mmol/L
(22-30)
BUN 22 H mg/dl
(7-17)
Glucose 101 H mg/dl
(70-99)
Calcium 11.0 H mg/dl
(8.4-10.2)
Total Bilirubin 1.4 H mg/dl
(0.2-1.3)
Total Protein 6.1 L g/dl
(6.3-8.2)
Ur Occult Blood Reflex 2+ A
(Negative)
Leukocyte Esterase Rfl Trace A
(Negative)
Urine WBC (Reflex) 16-20 A /HPF
(0-5)
Urine Bacteria (Reflex) Few A
(Negative)
03/10/24 20:25
03/10/24 20:25
Vital Signs
Initial and Last Documented VS:
Initial Vital Signs
Temp Pulse Resp BP Pulse Ox
99.1 F 118 16 132/75 94
03/10/24 19:51 03/10/24 19:51 03/10/24 19:51 03/10/24 19:51 03/10/24 19:51
Last Documented Vital Signs
Temp Pulse Resp BP Pulse Ox
100.2 F 106 27 131/70 95
03/10/24 23:52 03/11/24 02:00 03/11/24 02:00 03/11/24 00:00 03/11/24 00:00
MDM/Problems Addressed
Differential Diagnosis Includes:
Head injury, subdural, urinary tract infection, electrode abnormality, dehydration
MDM/Problems Addressed:
Patient brought for evaluation after fall. She has negative imaging for fracture head injury. Patient treat with IV fluids with improvement. Family states the patient was not eating or drinking much over the weekend. She continues to live alone.
Family states that they will have visiting nurses coming tomorrow. They are not interested in a group home situation. No evidence of a process that would benefit from acute care hospitalization. Heart rate improved with normal saline bolus
*Radiology
Radiology exam reviewed: preliminary read by ED provider (No acute disease noted on chest x-ray or pelvis x-ray) and radiology read reviewed
*Pulse Oximetry
Patient hypoxic: no
*EKG
Interpreted by ED Provider?: Yes
Interpretation: abnormal
Heart Rate: 113
Rate: tachycardiac
Rhythm: sinus tachycardia
[place]: normal axis
Interval: normal interval
QRS Pattern: normal QRS
Ischemia: no ischemia
*Panel Raiser Operator Interpretation
Rate: tachycardiac
Interpretation: abnormal
Rhythm: sinus tachycardia
*Critical Care Note
Total Time (30-74mins, 75-104mins- exclusive of procedures): Not Applicable
ED Attending Note
-
Portions of this chart may have been created with voice recognition software.� Occasional wrong word or��sound alike� substitutions may have occurred due to the inherent limitations of voice recognition software.
Discharge Plan
Departure
Patient Disposition: Home (Routine Discharge)
Date of Disposition: 03/11/24
Time of Disposition: 02:27
Patient with high blood pressure during this ER visit?: Yes
Condition: Good
Discharge Problem:
Acute dehydration, Head injury
Instructions: Head injury in adults, Dehydration, Adult ED
Prescriptions:
No Action
carbidopa-levodopa 10-100 mg Tablet
1 tab PO BID Qty: 60 0RF
Referrals:
Rex Ibarra MD [Family Provider] -
Interventions
Interventions:
*Risk Screen - Suicide Last Done: 03/10/24 19:51
*General Assessment Last Done: 03/11/24 02:53
*Neglect/Abuse Screening Last Done: 03/10/24 19:51
ED- Fall Risk Assessment Last Done: 03/11/24 00:15
*ED COVID-19 Vaccine History Last Done: 03/11/24 02:53
*Nursing Disposition Last Done: 03/11/24 02:53
ED-Musculoskeletal Assessment Last Done: 03/11/24 00:15
ED- Neurological Assessment Last Done: 03/11/24 00:15
ED-Skin Assessment Last Done: 03/11/24 00:15
Discharge Date and Time
Print Language: CHADIAN
[2024-03-10] MEDS: NSS 500 IV (23:53)
[2024-03-11] VITALS: BP 131/70
--- NOTE | 2024-03-11 02:24 | EDRN ---
Patient was able to ambulate with walker without difficulty, informed Dr. Narvaez.
== END 2024-03-11 02:54 | disposition home or self-care (01) ==
LOC: EMR 19:47
PROVIDERS: Emergency Medicine; EMERGENCY PHYSICIAN Emergency Medicine; FAMILY PHYSICIAN Family Medicine
DX: S09.90XA Unspecified injury of head, initial encounter (principal); W19.XXXA Unspecified fall, initial encounter; E86.0 Dehydration; R03.0 Elevated blood-pressure reading, without diagnosis of hypertension
CPT/HCPCS: 99285; 96360; 70450; 71046; 72170; 80053; 81003; 81015; 85025; 87077; 87086; 87147; 93005

== ENCOUNTER 2024-03-13 13:50 | Inpatient (IN) | payer OTHER, SELFPAY ==
[2024-03-13] VITALS (19 sets, daily range): BP systolic 66–156; BP diastolic 29–106
--- NOTE | 2024-03-13 09:27 | ED.GENMED ---
History of Present Illness
General
Chief Complaint: Dizziness
Time Seen by Provider: 03/13/24 09:12
History of Present Illness
History of Present Illness:
84-year-old female history of expressive aphasia from prior head injury, Parkinson's presenting status post fall. Daughter at bedside states that patient has had multiple falls since Friday 03/09. Daughter states that patient feels dizzy when she
stands up causing her to fall. Patient had a couple falls last night and then again this morning. Daughter states that patient reports shortness of breath for the past 1 week. Patient reports nausea but otherwise denies chest pain, cough, fever,
vomiting, abdominal pain, or urinary symptoms. Daughter states that patient had chills this morning after fall.
Phy Exam
Physical Exam
Physical Exam:
General: Alert, no acute distress
Head: NCAT
Eyes: clear conjunctiva
Neck: supple
Cardiac: tachycardic, regular rhythm, no murmur
Lungs: clear to auscultation bilaterally. No wheezes, rales, or rhonchi. Speaking full unlabored sentences. No respiratory distress. tachypneic
Abdomen: soft, nondistended nontender. No rebound or guarding.
MSK: bilateral nonpitting lower extremity edema with no overlying erythema. No deformity
Skin: warm, dry
Neuro: baseline mental status
Scores
PESI
Age: 84
Sex: Female
History of cancer: Yes
History of heart failure: No
History of chronic lung disease: No
Heart rate >/= 110: No
Systolic BP <100 mmHg: No
Respiratory rate >/= 30: Yes
Temperature <36�C/96.8�F: No
Altered mental status (disorientation, lethargy, stupor, or coma): No
O2 saturation <90%: No
Score: 132
Class: Class 5: >126 (very high mortality risk 10-24.5%)
Course
Orders/Labs/Results
Orders:
Orders
03/13/24 09:11
Electrocardiogram (*1) Urgent
Reason for Study: Chest Pain
EKG- Treatment ONCE
03/13/24 09:15
Urinalysis Reflex To Culture Urgent
Date Specimen was Collected: 03/13/24
Time Specimen was Collected: 09:11
03/13/24 09:28
0.9% Sodium Chloride 1000 ml [Nss] 1,000 ml IV BOLUS
CXR2 [CR Chest - 2 Views ] Urgent
Comment:
Reason For Exam: sob
03/13/24 09:29
CMP [Comprehensive Metabolic Panel] Urgent
Complete Blood Count/With Diff Urgent
DDimer [D-Dimer] Urgent
LDH Urgent
NT-proBNP Urgent
Protime/PTT Urgent
Troponin I Urgent
Uric Acid Urgent
03/13/24 09:30
CT Head W/o Iv Contrast Urgent
Comment:
Reason For Exam: fall head trauma
03/13/24 10:39
CT Chest Pe Study Urgent
Comment:
Reason For Exam: sob, elevated ddimer, r/o pe
03/13/24 12:52
Heparin 6,700 units IV NOW STA
Nursing to Place Non Medication Order As Directed
Physician Order: PTT 6 hours after initial start of Heparin infusion
Above order entered?: Yes
03/13/24 13:00
Heparin 18788 Units/250 ml 25,000 units in 250 ml IV PER PROTOCOL
Weight to be used for heparin protocol in kilograms (kg):: 83.5
Protocol:: DVT/PE
PTT Goal Range to be used:: PTT 73 to 111 seconds
Order type:: Initial
INITIAL Infusion Dose (UNITS/KG/hr) & then follow protocol:: 18 units/kg/hr
Infusion Dose in UNITS/hr & then follow protocol (UNITS/hr):: 1,500
INFUSION RATE in mL/hr & then follow protocol (mL/hr):: 15
For DVT/PE algorithm, re-bolus for low PTT?: Yes
PTT less than or equal to 64 seconds:: Re-bolus 80 units/kg (max 10,000units). Increase by 300 units/hr
(+ 3mL/hr)
PTT 64.1 to 72.9 seconds:: Re-bolus 40 units/kg (max 5,000 units). Increase by 200 units/hr
(+ 2mL/hr)
PTT 73 to 111 seconds:: Target Range. No change in rate.
PTT 111.1 to 130.9 seconds:: Decrease rate by 200 units/hr (- 2 mL/hr)
PTT 131 to 199.9 seconds:: HOLD for 1 hr. Then decrease by 300 units/hr (- 3mL/hr)
PTT greater than or equal to 200 seconds:: HOLD for 2 hrs & Notify Provider. Then decrease by 300 units/hr
(- 3mL/hr)
Lab follow-up:: Each change, PTT q6h until 2 consecutive are therapeutic. Then
PTT daily.
03/13/24 13:05
Heparin 3,300 units IV PRN PRN
Heparin 6,700 units IV PRN PRN
03/13/24 13:14
Add On- LAB Stat
Tests Added?: uric acid, LDH, IO Lymphoma/leukemia panel
03/13/24 13:26
Admit/Transfer Patient As Directed
Co-Sign Provider:
Level of Care: Inpatient admission
Assign to:: Telemetry
Physician / Group: lopez
Diagnosis: PE
Reason for Telemetry: Other
Other Reason for Telemetry: PE
Date to Stop Telemetry: 03/15/24
Time to Stop Telemetry: 11:00
Reason for Hospitalization: PE
Expected length of stay greater than two midnights?: Yes
ELOS- Estimated Length of Stay in days: 3
I certify the patient meets the requirements for IP care: Yes
PRN Pain Medication Management As Directed
May give lesser potent ordered pain med per pt: Yes
preference::
Protocol:: Medication orders for pain may be administered in a
manner that supports deferring to patient preference
when the pt is:
- Requesting an ordered lesser potent pain medication.
Least to most potent pain medications are defined
as: acetaminophen < NSAID < tramadol < opioids
(morphine, oxycodone, hydromorphone).
- Requesting a lesser dose of the same medication IF
ORDERED.
- Requesting a less intrusive route of administration
if both routes are prescribed by the provider (PO <
IV).
03/13/24 13:27
Code Status As Directed
Resuscitation Status: Full Code
03/13/24 19:15
PTT Urgent
03/15/24 11:00
DC Protocol for Telemetry ONCE
Abnormal Lab Results
03/13/24
09:29
RBC 3.52 L 10^6/uL
(4.20-5.40)
Hgb 10.5 L g/dL
(12.0-16.0)
Hct 30.9 L %
(37.0-47.0)
RDW 17.3 H %
(11.5-14.5)
Abs Immat Gran (auto) 0.1 H 10^3/uL
(0-0.05)
Absolute Lymphs (auto) 0.7 L 10^3/uL
(1.2-3.4)
Absolute Monos (auto) 0.9 H 10^3/uL
(0.1-0.6)
Immature Gran % 1.5 H %
(0-0.5)
Lymphocytes % 13.0 L %
(20.5-51.1)
Monocytes % 16.9 H %
(1.7-9.3)
APTT 23.0 L Sec
(23.4-35.0)
D-Dimer 1.41 H ug/mlFEU
(0.00-0.50)
Carbon Dioxide 21 L mmol/L
(22-30)
BUN 24 H mg/dl
(7-17)
Glucose 109 H mg/dl
(70-99)
Uric Acid 11.2 H mg/dl
(2.5-6.2)
Calcium 10.7 H mg/dl
(8.4-10.2)
Total Bilirubin 1.7 H mg/dl
(0.2-1.3)
Lactate Dehydrogenase 456 H U/L
(120-246)
Total Protein 6.1 L g/dl
(6.3-8.2)
03/13/24 09:29
03/13/24 09:29
Vital Signs
Initial and Last Documented VS:
Initial Vital Signs
Temp Pulse Resp BP Pulse Ox
99.6 F 109 27 124/69 98
03/13/24 08:53 03/13/24 08:53 03/13/24 08:53 03/13/24 08:53 03/13/24 08:53
Last Documented Vital Signs
Temp Pulse Resp BP Pulse Ox
97.6 F 107 30 149/86 98
03/13/24 12:28 03/13/24 15:00 03/13/24 15:00 03/13/24 13:00 03/13/24 15:00
MDM/Problems Addressed
Differential Diagnosis Includes:
roni, uti, electrolyte abnormality, PE, intracranial hemorrhage, pneumonia
MDM/Problems Addressed:
84yoF hx parkinsons, t cell lymphoma presenting with shortness of breath for the past 1 week and multiple falls since Friday 03/09. Milagros monet patient was evaluated in ER Saturday 03/10, had a negative workup and discharged home. Daughter states
patient fell while standing up from the toilet today, struck her head, no loss of consciousness. Pt not on blood thinners. Pt lives at home alone. Tachycardic, tachypneic. Labs reviewed, significant for ddimer 1.41, BN 24, troponin wnl, probnp 2070.
UA negative for UTI. EKG shows sinus tachycardia at 106 bpm with VA 136 /qtc 446 no acute ischemic changes. CTA chest shows 1. Small subsegmental emboli within both lower lobe pulmonary arteries. No evidence of right heart strain.
2. 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 Pathologic axillary, supraclavicular, submandibular, retroperitoneal, and mesenteric lymphadenopathy. Likely malignant.
3. Mass within the left breast measured 2.7 cm in diameter, highly concerning for breast neoplasm. This may also represent an enlarged left axillary lymph node.
4. Moderate coronary arterial calcification. Please correlate with symptoms of and risk factors for coronary artery disease, with further workup as clinically appropriate.
5. Thyroid nodule. Consider outpatient thyroid ultrasound.
CT head shows No acute intracranial abnormalities appreciated
As ready by radiology.
Ordered heparin for PE. Discussed with hospitalist for admission
*Critical Care Note
Total Time (30-74mins, 75-104mins- exclusive of procedures): Not Applicable
ED Attending Note
-
Portions of this chart may have been created with voice recognition software.� Occasional wrong word or��sound alike� substitutions may have occurred due to the inherent limitations of voice recognition software.
Discharge Plan
Departure
Patient Disposition: Admit
Date of Disposition: 03/13/24
Time of Disposition: 13:00
Presentation/result/management discussed w/ accepting MD/DO: Hospitalist
Discharge Problem:
Multiple subsegmental pulmonary emboli without acute cor pulmonale, Ambulatory dysfunction, Mediastinal mass, Breast mass
Interventions
Interventions:
*Risk Screen - Suicide Last Done: 03/13/24 09:34
*Neglect/Abuse Screening Last Done: 03/13/24 09:34
ED- Fall Risk Assessment Last Done: 03/13/24 09:34
*ED COVID-19 Vaccine History Last Done: 03/13/24 09:33
ED-Skin Assessment Last Done: 03/13/24 09:36
ED- Neurological Assessment Last Done: 03/13/24 09:34
ED-Musculoskeletal Assessment Last Done: 03/13/24 09:35
ED- Cardiac Assessment Last Done: 03/13/24 09:35
ED Swallowing Screen Last Done: 03/13/24 11:00
[2024-03-13] MEDS: NSS 1000 IV ×2 (09:32→17:59)
[2024-03-13 09:43] LABS: % Basophils 1.1 % (0-2); % Eosinophils 0.9 % (0-6); % Immature Granulocytes 1.5 % (0-0.5); % Monocytes 16.9 % (1.7-9.3); % Neutrophils 66.6 % (42.2-75.2); Absolute Basophils 0.1 10^3/uL (0-0.2); Absolute Eosinophils 0.1 10^3/uL (0-0.7); Absolute Immature Granulocytes 0.1 10^3/uL (0-0.05); Absolute Lymphocytes 0.7 10^3/uL (1.2-3.4); Absolute Monocytes 0.9 10^3/uL (0.1-0.6); Absolute Neutrophils 3.5 10^3/uL (1.4-6.5); Hematocrit 30.9 % (37.0-47.0); Hemoglobin 10.5 g/dL (12.0-16.0); Mean Corpuscular Hgb 29.8 pg (27.0-31.0); Mean Corpuscular Volume 87.8 fL (81.0-99.0); Mean Platelet Volume 9.3 fL (7.4-10.4); Nucleated Red Blood Cells % 0 %; Platelet Count 219 10^3/uL (130-400); Red Blood Cell Count 3.52 10^6/uL (4.20-5.40); Red Cell Dist. Width 17.3 % (11.5-14.5); White Blood Cell Count 5.3 10^3/uL (4.8-10.8)
[2024-03-13 09:52] LABS: Urine Albumin Negative (Neg - Trace); Urine Bilirubin Negative (Negative); Urine Character Clear (Clear); Urine Color Yellow; Urine Glucose Negative (Negative); Urine Ketone Negative (Negative); Urine Leukocyte Negative (Negative); Urine Nitrite Negative (Negative); Urine Occult Blood Negative (Negative); Urine Urobilinogen Negative (Neg - 1+)
[2024-03-13 10:00] LABS: PT 14.2 Sec (11.4-14.6)
[2024-03-13 10:04] LABS: D-Dimer 1.41 ug/mlFEU (0.00-0.50)
[2024-03-13 10:07] LABS: ALT (SGPT) 16 U/L (0-35); AST (SGOT) 32 U/L (14-36); Albumin 3.8 g/dl (3.5-5.0); Alkaline Phosphatase 90 U/L (38-126); Blood Urea Nitrogen 24 mg/dl (7-17); Calcium 10.7 mg/dl (8.4-10.2); Carbon Dioxide 21 mmol/L (22-30); Chloride 100 mmol/L (98-107); Glucose 109 mg/dl (70-99); Potassium 4.5 mmol/L (3.5-5.1); Sodium 136 mmol/L (135-145); Total Bilirubin 1.7 mg/dl (0.2-1.3); Total Protein 6.1 g/dl (6.3-8.2); eGFR 56.25
[2024-03-13 10:19] LABS: NT-proBNP 2070 pg/ml; Troponin I 0.013 ng/ml
--- NOTE | 2024-03-13 12:59 | HPS.HSE ---
Family Physician
-
Family Physician: Rex Ibarra
Chief Complaint
-
Dizzy, fall
History of Present Illness
84-year-old female history of expressive aphasia from prior head injury, Parkinson's presenting status post fall. Daughter at bedside states that patient has had multiple falls since Friday 03/09. Patient was just discharged from rehab on Sunday.
Since Sunday, patient having frequent falls. Patient complained of dizziness. Patient also complaining of short of breath for 1 week. Denied any headache. Patient denied any fever or chills, short of breath. Patient stated abdominal pain,
denied nausea vomiting diarrhea. Patient denies dysuria hematuria. stated worsening LE edema and pain.
Patient was diagnosed with T-cell lymphoma. Patient following up with all oncologist as outpatient
Medical History
Past Medical History
Past Medical History: Reports Other
Additional Past Medical History:
rhambdo
T cell lymphoma
Past Surgical History: Reports None
Social History
Tobacco: Non-smoker
Alcohol: None
Drug: None
Personal: Single
Living: Alone
Family History
Family History: Not pertinent
Allergies / Home Medications
Allergies reflects when Allergies were last updated in [facility].
Home Medications with original date entered in [facility]
Allergy/Medication List:
Allergies
Allergy/AdvReac Type Severity Reaction Status Date / Time
No Known Allergies Allergy Verified 03/10/24 19:50
Home Medications
carbidopa 10 mg-levodopa 100 mg tablet 1 tab PO BID #60 tabs 02/21/24
Review of Systems
-
Constitutional: Reports Fatigue
EENT: Reports No Symptoms
Respiratory: Reports Trouble Breathing
Cardiac: Reports No Symptoms
Abdomen/GI: Reports No Symptoms
: Reports No Symptoms
Musculoskeletal: Reports No Symptoms
Skin: Reports No Symptoms
Neurological: Reports Dizzy
Endocrine: Reports No Symptoms
Hematologic/Lymphatic: Reports No Symptoms
Psych: Reports No Symptoms
Physical Exam
Vital Signs
Vital Signs
Temp Pulse Resp BP Pulse Ox
97.6 F 103 34 143/83 98
03/13/24 12:28 03/13/24 12:15 03/13/24 12:15 03/13/24 12:12 03/13/24 12:15
Physical Exam
General: Well Developed, Well Nourished and No Apparent Distress
HEENT: NormoCephalic, Moist mucous membranes and Atraumatic
Respiratory: Clear
Cardiac: S1/S2 and Regular Rhythm; No Murmur or Rub
GI: Soft, Non Tender, Non Distended and Normal Bowel Sounds; No Organomegaly
Rectal: Deferred by Provider
Musculoskeletal: No Clubbing, No Cyanosis and Other (Bilateral lower extremities edema)
Skin: Rash
Neuro: AO x 3 and Nonfocal/grossly intact
Psych: Calm
Laboratory Results
-
03/13/24 09:29
03/13/24:29
Laboratory Results
PT 14.2 Sec (11.4-14.6) 03/13/24 09:29
INR 1.10 03/13/24:
APTT 23.0 Sec (23.4-35.0) L 03/13/24:
Total Bilirubin 1.7 mg/dl (0.2-1.3) H 03/13/24:
AST 32 U/L (14-36) 03/13/24 09:29
ALT 16 U/L (0-35) 03/13/24:
Alkaline Phosphatase 90 U/L (38-126) 03/13/24 09:29
Troponin I 0.013 ng/ml 03/13/24 09:29
Data Reviewed
-
Diagnostic Radiology: Report Reviewed by me
CT Scan: Report Reviewed by me
Lab Data: Labs Reviewed by me
Impression/Plan
-
#frequent falls/dizzy likely from PE/metastatic disease
-PT/OT consulted
-CT head negative
-Obtain orthostatics
#sob likely from pulmonary embolism
-CTA shows bilateral subsegmental PE with no right heart strain
-Continue heparin drip
# Mediastinal mass lymphadenopathy and left breast mass
# T-cell lymphoma
-CT with impression of mall subsegmental emboli within both lower lobe pulmonary arteries. No evidence of right heart strain.
2. 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 Pathologic axillary, supraclavicular, submandibular, retroperitoneal, and mesenteric lymphadenopathy. Likely malignant.
3. Mass within the left breast measured 2.7 cm in diameter, highly concerning for breast neoplasm. This may also represent an enlarged left axillary lymph node. Multiple pulmonary nodules suggestive of a moderate metastasis.
4. Moderate coronary arterial calcification. Please correlate with symptoms of and risk factors for coronary artery disease, with further workup as clinically appropriate.
5. Thyroid nodule. Consider outpatient thyroid ultrasound.
-Oncology consulted
-Labs from oncology added
# Chronic aphasia
Likely from Parkinson disease
# Anemia of chronic disease
-Iron studies reviewed, iron stores normal
-No active bleeding
-Continue to monitor
# Abd pain
CT abd/pelvis 02/14/2024
1. Abnormal retroperitoneal soft tissue attenuation mass most likely representing lymphadenopathy. There is bilateral inguinal adenopathy. Findings suspicious for lymphoma or less likely metastatic disease.
2. Mild prominence of right renal collecting system as compared with the left and increased right perinephric stranding. As above, right ureter courses directly adjacent to the retroperitoneal mass and these findings could be related to partial
ureteral obstruction. No definitive abnormally decreased right renal attenuation to strongly suggest pyelonephritis.
Code Status - full code
[2024-03-13] MEDS: HEPARIN 6700 UNITS IV (13:01)
[2024-03-13] MEDS: HEPARIN 25000 UNITS/250 ML IV (13:15)
--- NOTE | 2024-03-13 13:34 | W.PN.UPDATE ---
Addendum entered and electronically signed by Yadira Boucher MD 03/13/24 17:07:
blood consent signed over phone with witness
Original Note:
Update Note
Progress Note Update
This is an addendum to H&P written by [employer] Shilpa Osman
I saw and examined the patient.
The [employer]'s note was reviewed and I agree with the note.
Comment:
Ms. Dulce Frausto is a 84 yo woman with hx Parkinson's, aphasia, anemia of chronic disease, recent diagnosis of T-cell lymphoma (undergoing outpatient work-up, awaiting PET and had not yet had chest imaging), recent admission 02/14-02/20 for TME
where diagnosed with Parkinson's and started on sinemet, TA 2/2 rhadbo, presents to the ER post fall. Patient had dizziness when standing resulting in a fall, and shortness of breath over the past week.
Triage VS: T 99.6, P 109, RR 27, BP 124/69, SpO2 98%
On exam patient is mildly tachypneic, conversant (with daughter translating), abdomen benign, no LE swelling
LABS: WBC 5.3, Hg 10.5, PLT 219, INR 1.10, D-dimer 1.41, Na 136, K+ 4.5, CO2 21, BUN 24, Cr 1.0, Glucose 109, T. Bili 1.7, AST 32, ALT 16, Alk Phos 90, Trop 0.013, BNP 2070, UA Clear
CTA Chest
Not mentioned in the previous impression is that there are multiple pulmonary nodules suggestive of a moderate metastasis.
IMPRESSION:
1. Small subsegmental emboli within both lower lobe pulmonary arteries. No evidence of right heart strain.
2. 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 Pathologic axillary, supraclavicular, submandibular, retroperitoneal, and mesenteric lymphadenopathy. Likely malignant.
3. Mass within the left breast measured 2.7 cm in diameter, highly concerning for breast neoplasm. This may also represent an enlarged left axillary lymph node.
4. Moderate coronary arterial calcification. Please correlate with symptoms of and risk factors for coronary artery disease, with further workup as clinically appropriate.
5. Thyroid nodule. Consider outpatient thyroid ultrasound.
Pulmonary Embolism -small subsegmental, bilateral
-started on IV Heparin gtt in ER, will continue. patient may need biopsy this admission (see below)
-admit to telemetry
-TTE
-Heme/Onc consult
-orthostats repeat later this evening
-PT/OT
T-Cell Lymphoma
Left Breast Mass
-concerning for breast neoplasm versus enlarged left axillary lymph node
-Oncology consult to help guide further work-up/ biopsy inpatient prior to oral AC?
Parkinsonism
-[employer] Sinemet
Thyroid Nodule
-outpatient US
-TSH 1.29 on 02/14
FULL CODE
--- NOTE | 2024-03-13 14:09 | EDRN ---
The leukemia/ lymphoma test cannot be collected after 1200 as the test is a specialized test and missed the send out./ The lab states that they can collect it with the AM labs. Provider notified
[2024-03-13 14:59] LABS: LDH 456 U/L (120-246); Uric Acid 11.2 mg/dl (2.5-6.2)
[2024-03-13 16:44] LABS: Glucose - Point of Care 127 mg/dl (70-99)
--- NOTE | 2024-03-13 17:05 | W.PN.UPDATE ---
Addendum entered and electronically signed by Yadira Boucher MD 03/13/24 17:24:
discussed with intensivists; procedure too risky given location of mass and bleeding.
Daughter on her way in and I will chat with her again in person when she arrives.
DNR
Original Note:
Update Note
Progress Note Update
patient with significant hemoptysis with large blood clot. Heparin gtt stopped. Discussed with pulmonary; may need intubation and urgent bronchoscopy
stat labs ordered
blood consent signed
updated daughter. Daughter states patient is OK with intubation for procedure; she is DNR - updated code status
Daughter will come to the hospital now
Total Critical Care Time 31 minutes. I was immediately available to the patient and staff. I personally examined, reviewed labs, diagnostic images/reports, interpretations, treatment plans, discussed patient care with other providers and family
or caregivers (if patient is unable to make decisions), entered orders as appropriate and documented the medical record.
--- NOTE | 2024-03-13 17:17 | CON.INTV ---
Consultation
Consultation Request
Date/Time Consultation Requested: 03/13/2024 - 1709
Date/Time Consultation Performed: 03/13/2024 - 1713
Requesting Provider: Dr. Boucher
Performing Provider: Dr. Sparrow
Reason for Consultation: Massive hemoptysis
Medical History
-
Chief Complaint: Dizziness with fall
History of Present Illness:
84-year-old Kosovan speaking female non-smoker with a past medical history of T-cell lymphoma and prior head injury with resultant expressive aphasia who presents with dizziness for 1 week. Patient fell today from chair to the ground onto her
buttocks. Patient has recent scabbing scars in her scalp and this was reportedly down from recent biopsies. Patient is Sinemet for parkinsonism features. She was recently hospitalized from 02/14 - 02/21/2024 for acute encephalopathy thought to be
due to Parkinson syndrome with TA with rhabdomyolysis. She was discharged to rehab on Sinemet and was just discharged from rehab this last Sunday. Since this past Sunday she has been having frequent falls and intermittent dizziness also short of
breath for a week. She follows up with oncology as an outpatient for T-cell lymphoma. In the ER she was afebrile to 99.6 �F, tachycardic to 109, BP 124/69, heart rate 109 and saturating 90% on room air. Labs showed anemia to 10.5, INR 1.1,
D-dimer 1.41, serum bicarbonate level 21, uric acid 11.2, T. bili 1.7, LDH 456 and proBNP 2070. UA was negative for signs of UTI. CXR showed cardiomegaly without pulmonary edema, CT head showed no acute intracranial abnormality, and CT chest
showed small subsegmental emboli within the bilateral lower lobes with no evidence of right heart strain and a mediastinal mass within the right paratracheal region with pathological lymphadenopathy. Also a left breast mass measuring 2.7 cm
concerning for breast neoplasm. This could also represent an enlarged left actually lymph node. Patient was started on IV heparin gtt and also given a bolus of IVF with NS 0.9% x 1L. She was admitted to telemetry floor for further care. This
evening she developed significant hemoptysis with large blood clot and hypoxia. Patient transferred to the ICU for further care and cardiac cath technician/pulmonary service now consulted for additional management/recommendations.
When I saw the patient she had just arrived to the ICU and had blood that was coming out of her mouth. She was coughing up his blood well and protecting her airway. She was on room air saturating 97%, heart rate 124, breathing at 33 breaths/min
and BP 97/61. Conversation held between the primary hospitalist, Dr. Boucher, and the patient's daughter and the patient was made DNR/DNI. If a procedure is needed then the patient is okay for intubation. Patient does have expressive aphasia so
history + ROS were limited. She seems to be breathing comfortably and is in no acute distress while at rest.
PMHx: Prior head injury with resultant expressive aphasia, history of T-cell lymphoma
PSHx: Non-contributory
Past Medical History
Past Medical History: Other (Above as per HPI)
Past Surgical History: Other (Above as per HPI)
Social History
Tobacco: Non-smoker
Alcohol: None
Drug: None
Personal: Single
Living: Alone
Family History
Family History: Reviewed & Not Pertinent
Allergies / Home Medications
Allergies
Allergy/AdvReac Type Severity Reaction Status Date / Time
No Known Allergies Allergy Verified 03/10/24 19:50
Home Medications
�Medication �Instructions �Recorded �Confirmed �Last Taken �Type
carbidopa 10 mg-levodopa 100 mg 1 tab PO BID parkinsons 03/13/24 03/13/24 03/12/24 History
tablet
Review of Systems
-
Unable to Obtain full review of systems at this time due to: Other (Unable to obtain as patient has expressive aphasia)
Vitals / Labs / Diagnostic Testing
Vital Signs
Temp Pulse Resp BP Pulse Ox
98.3 F 116 19 133/78 97
03/13/24 16:24 03/13/24 16:24 03/13/24 16:24 03/13/24 16:24 03/13/24 16:24
Lab Data
03/13/24 Unknown
Laboratory Results
03/13/24 03/13/24
09:29 12:52
PT 14.2
INR 1.10
APTT 23.0 L Cancelled
Diagnostic Testing:
Physical Exam
-
HEENT: Normocephalic and Anicteric
Cardiovascular: S1/S2, Peripheral Edema (negative) and Other (Tachycardic)
Respiratory: Wheeze (negative), Rales (negative), Rhonchi (negative) and Accessory Resp Muscle Use (positive)
GI: Soft, Non Distended, Non Tender and Normal Bowel Sounds
Neurology: Awake and Alert
Skin: Warm and Dry
General: Respiratory Distress (mild at rest), Fever (negative), Chills (negative) and Sweats (negative)
Assessment
-
Assessment: 84-year-old Kosovan speaking female non-smoker with a past medical history of T-cell lymphoma and prior head injury with resultant expressive aphasia who presents with dizziness for 1 week. Patient fell today from chair to the ground
onto her buttocks. Patient has recent scabbing scars in her scalp and this was reportedly down from recent biopsies. Patient is Sinemet for parkinsonism features. She was recently hospitalized from 02/14 - 02/21/2024 for acute encephalopathy
thought to be due to Parkinson syndrome with TA with rhabdomyolysis. She was discharged to rehab on Sinemet and was just discharged from rehab this last Sunday. Since this past Sunday she has been having frequent falls and intermittent dizziness
also short of breath for a week. She follows up with oncology as an outpatient for T-cell lymphoma. In the ER she was afebrile to 99.6 �F, tachycardic to 109, BP 124/69, heart rate 109 and saturating 90% on room air. Labs showed anemia to 10.5,
INR 1.1, D-dimer 1.41, serum bicarbonate level 21, uric acid 11.2, T. bili 1.7, LDH 456 and proBNP 2070. UA was negative for signs of UTI. CXR showed cardiomegaly without pulmonary edema, CT head showed no acute intracranial abnormality, and CT
chest showed small subsegmental emboli within the bilateral lower lobes with no evidence of right heart strain and a mediastinal mass within the right paratracheal region with pathological lymphadenopathy. Also a left breast mass measuring 2.7 cm
concerning for breast neoplasm. This could also represent an enlarged left actually lymph node. Patient was started on IV heparin gtt and also given a bolus of IVF with NS 0.9% x 1L. She was admitted to telemetry floor for further care. On
evening of 03/13/2024 she developed significant hemoptysis with large blood clot and hypoxia. Patient transferred to the ICU for further care and cardiac cath technician/pulmonary service now consulted for additional management/recommendations.
Chronic conditions [employer]: Prior head injury with resultant expressive aphasia, history of T-cell lymphoma
Impression:
#Life-threatening hemoptysis due to anterior mediastinal mass with suspected tracheal invasion
#Acute blood loss anemia due to above
#Hypotension with sinus tachycardia due to above
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
#Dizziness with falls
#Metabolic acidosis with normal anion gap
#Elevated uric acid with differential including tumor lysis
#Hypercalcemia likely due to malignancy
#Hyperbilirubinemia
#Positive urine culture with Streptococcus agalactiae (via [facility] on 03/10/2024)
Plan:
- CTA chest from (03/13/2024) imaging was personally reviewed and she has a 3.8 cm right paratracheal mediastinal mass which appears to be encroaching upon the trachea which is likely the source of her hemoptysis
- Hematology/Oncology consult placed - recs pending
- Start nebulized TXA
- If patient survives then would consider biopsy of this mediastinal mass possibly with mediastinoscopy versus bronch with EBUS
- I have low suspicion that she will survive long enough for us to biopsy her as she is having massive hemoptysis and is becoming hypotensive and hypoxic --> transitioning to comfort care is appropriate
- Would transfuse 1 unit PRBC now given her massive hemoptysis unless pt is transitioned to comfort care
- Hold all anticoagulants/antiplatelets
- Daughter is en route to the hospital now
- Continue aspiration precautions with frequent suctioning as needed to help reduce aspiration risk
- Continue sinemet
- Give bolus of 1-2L NS 0.9% and she may need vasopressors with Neosynephrine to treat hypotension, at least until a decision is made about comfort care vs continued medical management with DNR/DNI - when daughter arrives then this will be discussed
in more detail
- Maintain SpO2 >90-94%
- Trend LFTs
- Maintain MAP>65
- Replete electrolytes with K>4, Mg>2
- Maintain euglycemia with goal BG 140-180
- Trend H/H and transfuse if needed to keep Hb>7g/dL; kep plt>20k, unless there is concern for bleeding then keep plt>50k
- prn nebulized bronchodilators - not currently bronchospastic
- DVT ppx: SCDs
Code status: DNR/DNI
Guarded prognosis
Critical care statement: A total of 44 minutes of critical care time was provided for this patient today. This includes management of unstable vital signs, evaluation of the patient at bedside, reviewing the patient's pertinent medical records
including radiographs, microbiology, laboratory evaluations, and discussion with primary team, consultants, pharmacy, nutrition, physical therapy, case management, charge nurse, critical care nursing, and respiratory therapy.
Data:
CTA chest with contrast 03/13/2024:
1. Small subsegmental emboli within both lower lobe pulmonary arteries. No evidence of right heart strain.
2. 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 Pathologic axillary, supraclavicular, submandibular, retroperitoneal, and mesenteric lymphadenopathy. Likely malignant.
3. Mass within the left breast measured 2.7 cm in diameter, highly concerning for breast neoplasm. This may also represent an enlarged left axillary lymph node.
4. Moderate coronary arterial calcification. Please correlate with symptoms of and risk factors for coronary artery disease, with further workup as clinically appropriate.
5. Thyroid nodule. Consider outpatient thyroid ultrasound.
[2024-03-13 17:24] LABS: INR 1.26; PT 15.8 Sec (11.4-14.6)
[2024-03-13 17:27] LABS: APTT 127.6 Sec (23.4-35.0)
[2024-03-13 17:29] LABS: ALT (SGPT) 16 U/L (0-35); AST (SGOT) 26 U/L (14-36); Albumin 3.3 g/dl (3.5-5.0); Alkaline Phosphatase 84 U/L (38-126); Blood Urea Nitrogen 22 mg/dl (7-17); Calcium 10.2 mg/dl (8.4-10.2); Carbon Dioxide 15 mmol/L (22-30); Chloride 103 mmol/L (98-107); Glucose 123 mg/dl (70-99); Potassium 4.7 mmol/L (3.5-5.1); Sodium 136 mmol/L (135-145); Total Bilirubin 1.3 mg/dl (0.2-1.3); Total Protein 5.4 g/dl (6.3-8.2); eGFR > 60.00
--- NOTE | 2024-03-13 17:29 | PTCARENOTE ---
pt arrived to unit at 1600 via stretcher from ED, daughter at the bedside. pt pulled over from stretcher to bed w/ assist from 3 associates. Pt belarusian speaking and aphasic from hx of head trauma from fall. Daughter assisted this nurse in completing
admission questions. pt arrived to unit with hep gtt running at 10ml/hr through L AC. pt changed and repositioned in bed. admission to the floor vitals completed at 1620 stable w/ hr elevated at 113. pt hr in the ED in the low 100-110s. This nurse
entered entered room around 1630 to assess pt and found pt with bright red blood on face, b/l arms/hands, blanket and side rail. Hep gtt line intact. no visible signs of bleeding. this nurse grabbed sheets and wipes to clean up pt, ammunition assembly ii laborer
fabio came in the room to assist. pt spit up blood with small clots. hep gtt placed on hold. began suctioning pt. ekg completed. vitals completed, HR elevated in 130s, other VSS. pt continued to spit up large amounts of blood and large blood clots.
Dr. lopez notified via tt at 1642. labs drawn. RR called at 1655. pt connected to code cart monitor. bp dropped to 73/48 at 1702, pt diaphoretic and pale. IVF bolus started. pt transferred to ICU with this nurse, ammunition assembly ii laborer, x2 ICU nurses, resp
therapist, and tech colby. pt transferred to room 3365. This nurse communicated information with ICU nurse in charge of rapid.
[2024-03-13 17:40] LABS: Troponin I 0.019 ng/ml
[2024-03-13 17:42] LABS: Hematocrit 10.4 % (37.0-47.0); Hemoglobin 3.5 g/dL (12.0-16.0); Mean Corp Hgb Conc. 33.7 g/dL (33.0-37.0); Mean Corpuscular Hgb 29.4 pg (27.0-31.0); Mean Corpuscular Volume 87.4 fL (81.0-99.0); Mean Platelet Volume 9.6 fL (7.4-10.4); Platelet Count 102 10^3/uL (130-400); Red Blood Cell Count 1.19 10^6/uL (4.20-5.40); White Blood Cell Count 4.2 10^3/uL (4.8-10.8)
[2024-03-13] MEDS: MORPHINE SULFATE 2 MG IV ×2 (17:43→18:29)
[2024-03-13] MEDS: TRANEXAMIC ACID 500 MG INH (17:51)
--- NOTE | 2024-03-13 18:23 | W.PN.UPDATE ---
Update Note
Progress Note Update
Daughter arrived. Described situation, patient is continuing to hemorrhage blood with massive drop in Hg and she will not survive this. Daughter agrees with transition to comfort care and starting continuous IV morphine infusion. I told daughter
that her mother will likely pass within the hour.
[2024-03-13] MEDS: MORPHINE 100 IV (18:40)
--- NOTE | 2024-03-13 19:06 | PTCARENOTE ---
Pt received as transfer from [facility] s/p rapid response. On arrival pt coughing up large amounts of bright red blood with large clots. Pt was able to protect airway. Placed on highflow by RT at bedside sating 97%. HR tachycardic in 120s. BPs soft
with systolics ranging 60s-90s. Respirations 33. H&H as well as type and screen sent on arrival to ICU. Results showed Hgb (3.5) and Hct (10.4). 1 L normal saline bolus started. 2mg Morphine Sulfate IV ordered and given through L AC PIV. Pt code
status was than changed from limited DNR to DNR/DNI after hospitalist was able to update family. Comfort care orders placed. Pt weaned off highflow to room air. Fluid bolus discontinued. Second 2mg Morphine Sulfate IV given and pt initiated on
Morphine gtt (step 1). Family now at bedside, comfort measures in place. Report given to medical staff coordinator RN.
--- NOTE | 2024-03-13 19:20 | PTCARENOTE ---
Assumed care of pt. approx 1900.
Pt. transitioned to Comfort care/measures only just prior to change of shift.
Placed on morphine gtt, step 1. See titration flowsheet for details
Family bedside w/ volunteer providing emotional services manufacturing supervisor 2nd shift notified.
--- NOTE | 2024-03-13 19:55 | PTCARENOTE ---
Pt. , Working Foreman services delivered last rights w/ family.
ICU COLLETTE pronounced , see provider note for further details.
--- NOTE | 2024-03-13 19:59 | W.PN.DEATH ---
Pronouncement of
-
Called to see patient to pronounce.
No spontaneous heart tones or respirations noted.
Patient not responsive to verbal stimuli.
Patient is pronounced .
Time of : 19:52
Date of : 03/13/24
Cause of : Life-threatening hemoptysis due to anterior mediastinal mass with suspected tracheal invasion
Family Notified: Yes
--- NOTE | 2024-03-13 20:12 | PTCARENOTE ---
GOL notified 2008, Pt. ruled not a candidate due to Age, See certificate referral for further details.
--- NOTE | 2024-03-13 20:18 | W.DCSUMMARY ---
Discharge Summary
Discharge Data
Date of Admission: 03/13/24
Date of Discharge: 03/13/24
-
Pending Results: No
Hospital Course
Date of 03/13/24
Time of : 19:52
Hospital Course :
Ms. Dulce Frausto is a 84 yo woman with hx Parkinson's, aphasia, anemia of chronic disease, recent diagnosis of T-cell lymphoma, recent admission 02/14-02/20 for [facility] where diagnosed with Parkinson's and started on Sinemet, presents to the ER post
fall. Patient reported dizziness when standing resulting in a fall, and shortness of breath over the past week. Triage vitals stable. Labs with Hg 10.5, d-dimer 1.41. A Chest CT showed small subsegmental emboli in bilateral lower lobe pulmonary
arteries. Chest CT also showed mediastinal mass, significant lymphadenopathy, mass within left breast concerning for breast neoplasm versus enlarged left axillary LN. She was admitted to medicine with Oncology consulting, started on an IV heparin
gtt for PE. Within hours after starting IV heparin gtt, patient had severe hemoptysis requiring transfer to ICU. Heparin gtt stopped, not candidate for procedure given location of bleeding and mass with repeat Hg 3.5. Daughter was updated
throughout these events and decision was made to transition to comfort care with IV morphine gtt initiated. Family notified at time of .
Important imaging findings :
CTA Chest
Not mentioned in the previous impression is that there are multiple pulmonary nodules suggestive of a moderate metastasis.
IMPRESSION:
1. Small subsegmental emboli within both lower lobe pulmonary arteries. No evidence of right heart strain.
2. 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 Pathologic axillary, supraclavicular, submandibular, retroperitoneal, and mesenteric lymphadenopathy. Likely malignant.
3. Mass within the left breast measured 2.7 cm in diameter, highly concerning for breast neoplasm. This may also represent an enlarged left axillary lymph node.
4. Moderate coronary arterial calcification. Please correlate with symptoms of and risk factors for coronary artery disease, with further workup as clinically appropriate.
5. Thyroid nodule. Consider outpatient thyroid ultrasound.
Procedure findings :
Discharge Plan
-
Patient Disposition:
Date/Time
Date/Time: 03/13/24 19:52
Discharge Date and Time
Discharge Date/Time: 03/13/24 19:52
Print Language: GERMAN
--- NOTE | 2024-03-13 21:32 | PTCARENOTE ---
Wedding band kept on patient per family request (Daughter Wanda).
== END 2024-03-13 19:52 | disposition expired | DRG 180 ==
LOC: ICU 13:50
PROVIDERS: ADMITTING PHYSICIAN Student in an Organized Health Care Education/Training Program; CONSULT PHYSICIAN Internal Medicine Critical Care Medicine; EMERGENCY PHYSICIAN Emergency Medicine; FAMILY PHYSICIAN Family Medicine
DX: C78.39 Secondary malignant neoplasm of other respiratory organs (principal); I26.94 Multiple subsegmental thrombotic pulmonary emboli without acute cor pulmonale; C85.90 Non-Hodgkin lymphoma, unspecified, unspecified site; R04.2 Hemoptysis; E87.20 Acidosis, unspecified; R47.01 Aphasia; C79.81 Secondary malignant neoplasm of breast; C78.1 Secondary malignant neoplasm of mediastinum; C78.00 Secondary malignant neoplasm of unspecified lung; R22.2 Localized swelling, mass and lump, trunk; D63.8 Anemia in other chronic diseases classified elsewhere; G20.A1 Parkinson's disease without dyskinesia, without mention of fluctuations; Z51.5 Encounter for palliative care; E04.1 Nontoxic single thyroid nodule; R09.02 Hypoxemia; R29.6 Repeated falls; Z66 Do not resuscitate; Z87.828 Personal history of other (healed) physical injury and trauma; Z60.2 Problems related to living alone
CPT/HCPCS: 70450; 71046; 71275; 80053; 81003; 82962; 83615; 83880; 84484; 84550; 85025; 85027; 85379; 85610; 85730; 86850; 86900; 86901; 93005; 94640; 96361; 96374; 99285; Q9967